=== PATIENT | male | born 1950 | race Caucasian/White ===

== ENCOUNTER → 2023-09-01 07:07 | Outpatient (REF) | payer MEDICARE, OTHER, SELFPAY ==
[2023-09-01 10:28] LABS: % Basophils 0.6 % (0-2); % Eosinophils 0.9 % (0-6); % Immature Granulocytes 0.3 % (0-0.5); % Lymphocytes 21.6 % (20.5-51.1); % Neutrophils 67.6 % (42.2-75.2); Absolute Basophils 0.1 10^3/uL (0-0.2); Absolute Eosinophils 0.1 10^3/uL (0-0.7); Absolute Lymphocytes 1.9 10^3/uL (1.2-3.4); Absolute Monocytes 0.8 10^3/uL (0.1-0.6); Absolute Neutrophils 6.1 10^3/uL (1.4-6.5); Hematocrit 46.4 % (39.0-52.0); Hemoglobin 16.2 g/dL (13.0-18.0); Mean Corp Hgb Conc. 34.9 g/dL (33.0-37.0); Mean Corpuscular Hgb 32.1 pg (27.0-31.0); Mean Corpuscular Volume 91.9 fL (80.0-94.0); Mean Platelet Volume 9.6 fL (7.4-10.4); Nucleated Red Blood Cells % 0 % (-); Platelet Count 208 10^3/uL (130-400); Red Blood Cell Count 5.05 10^6/uL (4.70-6.10); Red Cell Dist. Width 12.4 % (11.5-14.5)
[2023-09-01 10:38] LABS: ALT (SGPT) 18 U/L (0-50); AST (SGOT) 21 U/L (17-59); Albumin 4.1 g/dl (3.5-5.0); Alkaline Phosphatase 87 U/L (38-126); Blood Urea Nitrogen 14 mg/dl (9-20); Calcium 9.7 mg/dl (8.4-10.2); Carbon Dioxide 26 mmol/L (22-30); Chloride 105 mmol/L (98-107); Glucose 87 mg/dl (70-99); HDL Cholesterol 43 mg/dl; Potassium 3.9 mmol/L (3.5-5.1); Sodium 135 mmol/L (135-145); Total Bilirubin 0.8 mg/dl (0.2-1.3); Total Protein 6.8 g/dl (6.3-8.2); Triglyceride 120 mg/dl (10-149); Very Low Density Lipoprotein 24 mg/dl (0-30); eGFR > 60.00
[2023-09-01 10:49] LABS: LDL Cholesterol, Calculated 76 mg/dl; Total Cholesterol 143 mg/dl (50-199)
[2023-09-01 11:06] LABS: TSH Reflex To Free T4 1.95 uIU/ml (0.47-4.68)
[2023-09-01 13:20] LABS: Glycohemoglobin (HgbA1c) 5.6 % (4.0-5.6)
== END ==
LOC: HWLAB 07:07
PROVIDERS: ATTENDING PHYSICIAN Registered Nurse
DX: R73.01 Impaired fasting glucose (principal); E78.2 Mixed hyperlipidemia; K70.0 Alcoholic fatty liver
CPT/HCPCS: 36415; 80053; 80061; 83036; 84443; 85025

== ENCOUNTER → 2024-01-18 10:09 | Outpatient (REF) | payer MEDICARE, OTHER, SELFPAY | LOC: HWRAD 10:09 | PROVIDERS: ATTENDING PHYSICIAN Internal Medicine Critical Care Medicine; FAMILY PHYSICIAN Registered Nurse | DX: F17.210 Nicotine dependence, cigarettes, uncomplicated (principal) | CPT/HCPCS: 71271 ==

== ENCOUNTER 2024-06-30 10:18 | Inpatient (IN) | payer MEDICARE, OTHER, SELFPAY ==
[2024-06-30] VITALS (9 sets, daily range): BP systolic 118–148; BP diastolic 72–89; BMI 31.5
[2024-06-30 08:04] LABS: % Basophils 0.4 % (0-2); % Eosinophils 0.1 % (0-6); % Immature Granulocytes 0.5 % (0-0.5); % Lymphocytes 9.6 % (20.5-51.1); % Monocytes 6.5 % (1.7-9.3); % Neutrophils 82.9 % (42.2-75.2); Absolute Basophils 0.1 10^3/uL (0-0.2); Absolute Immature Granulocytes 0.1 10^3/uL (0-0.05); Absolute Lymphocytes 1.1 10^3/uL (1.2-3.4); Absolute Monocytes 0.8 10^3/uL (0.1-0.6); Absolute Neutrophils 9.7 10^3/uL (1.4-6.5); Hematocrit 46.4 % (39.0-52.0); Hemoglobin 16.4 g/dL (13.0-18.0); Mean Corp Hgb Conc. 35.3 g/dL (33.0-37.0); Mean Corpuscular Hgb 34.2 pg (27.0-31.0); Mean Corpuscular Volume 96.7 fL (80.0-94.0); Mean Platelet Volume 8.4 fL (7.4-10.4); Nucleated Red Blood Cells % 0 % (-); Platelet Count 205 10^3/uL (130-400); Red Cell Dist. Width 13.7 % (11.5-14.5); White Blood Cell Count 11.7 10^3/uL (4.8-10.8)
[2024-06-30 08:16] LABS: ALT (SGPT) 32 U/L (0-50); AST (SGOT) 51 U/L (17-59); Albumin 3.9 g/dl (3.5-5.0); Alkaline Phosphatase 75 U/L (38-126); Blood Urea Nitrogen 13 mg/dl (9-20); Calcium 8.4 mg/dl (8.4-10.2); Carbon Dioxide 18 mmol/L (22-30); Chloride 109 mmol/L (98-107); Estimated Creatinine Clearance 84 ml/min; Glucose 102 mg/dl (70-99); Potassium 3.8 mmol/L (3.5-5.1); Sodium 140 mmol/L (135-145); Total Bilirubin 1.2 mg/dl (0.2-1.3); Total Protein 6.6 g/dl (6.3-8.2); eGFR > 60.00
--- NOTE | 2024-06-30 08:25 | ED.GENMED ---
History of Present Illness
General
Chief Complaint: Fall
Source: patient and spouse
Time Seen by Provider: 06/30/24 08:15
History of Present Illness
History of Present Illness:
This patient is a 74-year-old male presents emergency department complaints of left hip pain status post fall in the middle the night. He describes tripping on a rug, no preceding symptoms, and landing on his left side. He did not hit his head and
denies loss of this, headache, neck pain, numbness, tingling. He was able to back in bed but was not great pain at the left hip area specifically. He waited until his awoke before calling for help. He denies other areas of pain or injury.
He denies chest pain, shortness of breath, nausea, vomiting, numbness, tingling, focal or other complaints.
Past History
Past History
ED Past Medical History: HTN, Hypercholesterolemia and Other (Skin Cancer, Rib Fractures)
ED Past Surgical History: Appendectomy and Cholecystectomy
Social History
Tobacco: Smoker
Alcohol: Occasional
Drug: None
Personal:
Living: with family
Phy Exam
Physical Exam
Physical Exam:
GENERAL: Alert , in no apparent distress
EYE: pupils equal and reactive, EOMI, no photophobia
NECK: Supple, no significant adenopathy, no midline tenderness.
ENT: o/p clr, mmm, no signs of head or facial injury noted on exam.
CARDIAC: Regular rate and rhythm .
LUNGS: Clear breath sounds bilaterally, no acute respiratory distress, no wheezes/rales/rhonchi
ABDOMEN: Soft, without focal tenderness, no r/g, no cvat
NEUROLOGICAL: Alert and oriented, no focal neuro deficits
SKIN: Warm and dry, skin intact.
MUSCULOSKELETAL: No edema, well perfused, 2+ DP/PT pulses bilaterally. Patient has limited range of motion of left hip with associated tenderness to palpation on the lateral hip area. No swelling or tenderness noted distally..
PSYCH: Normal and appropriate interaction.
Course
Orders/Labs/Results
Orders:
Orders
06/30/24 07:54
CR Hip - LT w/wo Pel 2-3 Vw* Urgent
Comment:
Reason For Exam: fall/pain
Include a pelvis x-ray?: Yes
06/30/24 07:56
Complete Blood Count/With Diff Urgent
Comprehensive Metabolic Panel Urgent
06/30/24 08:28
Morphine Sulfate 6 mg IV NOW STA
Abnormal Lab Results
06/30/24
07:56
WBC 11.7 H 10^3/uL
(4.8-10.8)
MCV 96.7 H fL
(80.0-94.0)
MCH 34.2 H pg
(27.0-31.0)
Abs Immat Gran (auto) 0.1 H 10^3/uL
(0-0.05)
Absolute Neuts (auto) 9.7 H 10^3/uL
(1.4-6.5)
Absolute Lymphs (auto) 1.1 L 10^3/uL
(1.2-3.4)
Absolute Monos (auto) 0.8 H 10^3/uL
(0.1-0.6)
Neutrophils % 82.9 H %
(42.2-75.2)
Lymphocytes % 9.6 L %
(20.5-51.1)
Chloride 109 H mmol/L
(98-107)
Carbon Dioxide 18 L mmol/L
(22-30)
Glucose 102 H mg/dl
(70-99)
06/30/24 07:56
06/30/24 07:56
Vital Signs
Initial and Last Documented VS:
Initial Vital Signs
Temp Pulse Resp BP Pulse Ox
99.6 F 94 20 140/79 93
06/30/24 07:47 06/30/24 07:47 06/30/24 07:47 06/30/24 07:47 06/30/24 07:47
Last Documented Vital Signs
Temp Pulse Resp BP Pulse Ox
99.6 F 94 20 140/79 93
06/30/24 07:47 06/30/24 07:47 06/30/24 07:47 06/30/24 07:47 06/30/24 07:47
*Critical Care Note
Total Time (30-74mins, 75-104mins- exclusive of procedures): Not Applicable
Update Note
Update Note:
Patient presents to the Emergency Department with ___left hip pain status post fall
Number and Complexity of Problems Addressed at the Encounter
� Chronic conditions affecting care:
� Acute Exacerbation and/or Progression of Chronic Illness:
� Differential Diagnosis includes: But not limited to pelvic fracture, hip fracture, hip dislocation, strain, etc. etc.
Amount and/or Complexity of Data to be Reviewed and Analyzed
� I performed an independent evaluation of and my interpretation is:
EKG:
CT:
Xrays: Read by me, left hip fracture noted...confirmed by arash mccartney There is a lucency through the left femoral neck favored to represent a minimally displaced left femoral neck fracture, likely transcervical.
Laboratory Studies: Mild leukocytosis, nonspecific
Other:
� Review of other/old records reveals:
� Clinical information was obtained by an independent historian: who is bedside
� Prescriptions/Medications Considered but not given:
� Further testing considered but not performed:
Risk of Complications and/or Morbidity or Mortality of Patient Management
� Social determinants of health affecting care:
� Discussion with other providers (PCP, Hospitalists, Consultants, etc):
� Escalation of care including admission/observation vs risk of discharge considered: Patient and aware of noted x-ray findings. Beulah text sent to orthopedics, Dr. Marvin HIGH Will make hospitalist aware of patient for
admission. Repeat dose of pain medication here.
ED Attending Note
-
Portions of this chart may have been created with voice recognition software.� Occasional wrong word or��sound alike� substitutions may have occurred due to the inherent limitations of voice recognition software.
Discharge Plan
Departure
Patient Disposition: Admit
Date of Disposition: 06/30/24
Time of Disposition: 08:32
Presentation/result/management discussed w/ accepting MD/DO: Hospitalist
Condition: Fair
Discharge Problem:
Closed hip fracture
Prescriptions:
No Action
atorvastatin 40 MG tablet
40 mg PO HS
meloxicam 15 MG tablet
15 mg PO DAILYPRN PRN (Reason: moderate pain)
cyanocobalamin (vitamin B-12) 1,000 MCG tablet
1,000 mcg PO DAILY
trazodone 100 MG tablet
100 mg PO HS
albuterol sulfate 1 PUFF HFA aerosol inhaler
2 puff inhalation R Q4HPRN PRN (Reason: sob/wheeze)
Saccharomyces boulardii 250 MG capsule
250 mg PO DAILY
multivitamin with folic acid [Tab-A-Marci] 1 TABLET tablet
1 tab PO DAILY
lidocaine 1 PATCH adhesive patch,medicated
1 patch topical DAILY Qty: 7 0RF
Rx Instructions:
apply to chest wall
nicotine 21 MG patch 24 hour
21 mg transdermal DAILY 0RF
melatonin 5 MG tablet
5 mg PO HS 0RF
guaifenesin [Mucus Relief ER] 600 MG tablet extended release 12hr
600 mg PO Q12 0RF
prednisone 10 MG tablet
10 mg PO DAILY Qty: 12 0RF
Rx Instructions:
3 tabs daily for 2 days, 2 tabs daily for 2 days, 1 tab daily for 2 days.
lisinopril 20 MG tablet
20 mg PO DAILY Qty: 30 0RF
apixaban [Eliquis] 5 MG tablet
10 mg PO BID Qty: 14 0RF
Interventions
Interventions:
*Risk Screen - Suicide Last Done: 06/30/24 07:47
*General Assessment Last Done: 06/30/24 07:47
*Neglect/Abuse Screening Last Done: 06/30/24 07:47
Discharge Date and Time
Print Language: BENGALI
[2024-06-30] MEDS: MORPHINE SULFATE 6 MG IV (08:34)
[2024-06-30 09:55] LABS: INR 0.92; PT 12.7 Sec (11.4-14.6)
[2024-06-30 09:56] LABS: APTT 28.3 Sec (23.4-35.0)
--- NOTE | 2024-06-30 10:04 | HPS.HSE ---
Family Physician
-
Family Physician: Brittany Dey MD
Chief Complaint
-
L leg pain
History of Present Illness
74yo M with PMHx of DJD, spinal canal stenosis, DVT LE completed aticoagualtiyon, HLD, bronchiectatic disease, current smoker 0.5ppd, HTN, insomnia fell at night when he went to the bathroom, when he tripped. No LOC reported. Patient not on any
antiplatelet or anticoagulation. Patient occasional drinker, not daily as per family. In ED found acute minimally displaced left femoral neck fracture. Also found with hypoxia and mild LE edema. Patient without history of cardiac diseases. Had CT
chest screening in Dec 2023 that was neg for malignancy, but showed bronchiectatic disease.
Medical History
Past Medical History
Past Medical History: Reports Other
Additional Past Medical History:
see HPI
Past Surgical History: Reports Other
Additional Past Surgical History:
see HPI
Social History
Tobacco: Smoker
Alcohol: Occasional
Drug: None
Family History
Family History: Not pertinent
Allergies / Home Medications
Allergies reflects when Allergies were last updated in [facility].
Home Medications with original date entered in [facility]
Allergy/Medication List:
Allergies
Allergy/AdvReac Type Severity Reaction Status Date / Time
Penicillins Allergy Unknown Unknown Verified 06/30/24 07:52
codeine AdvReac Nausea / Verified 06/30/24 07:52
Vomiting
Home Medications - not reconsiled at the time of admission
Saccharomyces boulardii 250 mg capsule 250 mg PO DAILY 06/06/19
albuterol sulfate 90 mcg/actuation aerosol inhaler 2 puff inhalation R Q4HPRN PRN sob/wheeze 06/06/19
atorvastatin 40 mg tablet 40 mg PO HS 06/06/19
cyanocobalamin (vitamin B-12) 1,000 mcg tablet 1,000 mcg PO DAILY 06/06/19
meloxicam 15 mg tablet 15 mg PO DAILYPRN PRN moderate pain 06/06/19
multivitamin with folic acid 400 mcg tablet (Tab-A-Marci) 1 tab PO DAILY 06/06/19
trazodone 100 mg tablet 100 mg PO HS 06/06/19
guaifenesin 600 mg tablet, extended release 12 hr (Mucus Relief ER) 600 mg PO Q12 06/09/19
lidocaine 5 % topical patch 1 patch topical DAILY #7 patches 06/09/19
lisinopril 20 mg tablet 20 mg PO DAILY #30 tabs 06/09/19
melatonin 5 mg tablet 5 mg PO HS 06/09/19
nicotine 21 mg/24 hr daily transdermal patch 21 mg transdermal DAILY 06/09/19
prednisone 10 mg tablet 10 mg PO DAILY #12 tabs 06/09/19
Review of Systems
-
A 12 point ROS was completed and negative except as noted: No
Musculoskeletal: Reports See HPI
Physical Exam
Vital Signs
Vital Signs
Temp Pulse Resp BP Pulse Ox
99.6 F 94 20 140/79 93
06/30/24 07:47 06/30/24 07:47 06/30/24 07:47 06/30/24 07:47 06/30/24 07:47
Physical Exam
General: Well Nourished, No Apparent Distress and Obese
Respiratory: Clear and Decreased Breath Sounds; No Wheezes, Rhonchi or Crackles
Cardiac: S1/S2 and Regular Rhythm; No Murmur
GI: Soft, Non Tender and Non Distended
Genito-urinary: No costovertebral tender
Musculoskeletal: No Clubbing, No Cyanosis, Edema, Left Lower Extremity and Edema, Right Lower Extremity
Skin: Warm and Other (fascial flushing, conjunctival redness)
Neuro: Awake, Alert, Oriented and AO x 3
Psych: Calm
Laboratory Results
-
06/30/24 07:56
06/30/24 07:56
Laboratory Results
PT 12.7 Sec (11.4-14.6) 06/30/24 07:50
INR 0.92 06/30/24 07:50
APTT 28.3 Sec (23.4-35.0) 06/30/24 07:50
Total Bilirubin 1.2 mg/dl (0.2-1.3) 06/30/24 07:56
AST 51 U/L (17-59) 06/30/24 07:56
ALT 32 U/L (0-50) 06/30/24 07:56
Alkaline Phosphatase 75 U/L (38-126) 06/30/24 07:56
Data Reviewed
-
Diagnostic Radiology: Report Reviewed by me
Lab Data: Labs Reviewed by me
Impression/Plan
-
A/P:
#Fall without LOC
Ortho consult: surgical intervention planned for 07/02/24
Pain mgmt
PT/OT afterwards
Patient needs chestXR and EKG before the surgery, might need a dose of diuretics and to avoid volume overload with IVF periOP - ortho notified. Modewrate risk for intermediate risk procedure
Head CT
bedrest till Sx, unless ortho advise differently
#LE swelling with acute hypoxic insufficiency
Echo, Lasix, wean off O2, daily weight, cardiology consult
Chest XR
EKG
check ProBNP
#Mild leukocytosis
most likely stress induced
check COVID-19, Influenza PCR
follow CBC
#Hx of DVT
completed AC
LE US
Check DDImer
#Bronchiectatic disease
Chest XR
bronchodilators
#Nicotine dependency
Nicoderm
#Obesity
BMI 31.5
advide to decrease calorie intake
#Alcohol use
watch for withdrawal
Thiamine/Folate
No reported abuse, will not start MSAS as of now with absent symptoms unless Alcohol level elevated
#conjuctival redness
most likely 2/2 not sleeping due to pain
monitor
#HLD
#HTN
#Spinal stenosis on pain meds
COnt home meds
hold lisinopril on the day of the Sx
DVT ppx Lovenox
Full code - discussed in details with family and patient
I have spent at least 79min reviewing chart, test results, communication with consultants and providing direct patient care
[2024-06-30 10:42] LABS: NT-proBNP 131 pg/ml
[2024-06-30 11:05] LABS: TSH Reflex To Free T4 2.44 uIU/ml (0.47-4.68)
[2024-06-30 11:06] LABS: COVID-19 Antigen Negative (Negative)
[2024-06-30 11:17] LABS: D-Dimer > 20.00 ug/mlFEU (0.00-0.50)
[2024-06-30 11:18] LABS: Alcohol 64 mg/dl
--- NOTE | 2024-06-30 11:28 | CON.CAR ---
Consultation
Consultation Request
Date/Time Consultation Requested: 06/30/2024
Date/Time Consultation Performed: 06/30/2024
Requesting Provider: Dr. Lewis
Performing Provider: Dr. Velazco
Reason for Consultation: Possible CHF
Medical History
-
Chief Complaint: Fall
History of Present Illness:
74-year-old male with hypertension, hyperlipidemia, chronic continued cigarette use, bronchiectasis, DJD, spinal stenosis, and previous lower extremity DVT (status-post completed course of anticoagulation admitted after a fall after tripping over a
rug at home; found to have a left hip fracture. Cardiology consulted for possible CHF, given mild lower extremity swelling. Patient denies chest pain or shortness of breath; states that he had mild lower extremity swelling this morning after
falling--has not been progressive over the past few days or weeks.
Past Medical History
Past Medical History: COPD (Bronchiectasis), HTN, Hypercholesterolemia and Other (DJD)
Past Surgical History: Appendectomy and Cholecystectomy
Social History
Tobacco: Smoker
Alcohol: Occasional
Drug: None
Living: With Family
Family History
Family History: Reviewed & Not Pertinent
Allergies / Home Medications
Allergy/AdvReac Type Severity Reaction Status Date / Time
Penicillins Allergy Unknown Unknown Verified 06/30/24 07:52
codeine AdvReac Nausea / Verified 06/30/24 07:52
Vomiting
�Medication �Instructions �Recorded �Confirmed �Type
Saccharomyces boulardii 250 mg 250 mg PO DAILY 06/06/19 06/06/19 History
capsule
albuterol sulfate 90 mcg/actuation 2 puff inhalation R Q4HPRN PRN 06/06/19 06/06/19 History
aerosol inhaler sob/wheeze
atorvastatin 40 mg tablet 40 mg PO HS 06/06/19 06/06/19 History
cyanocobalamin (vitamin B-12) 1,000 mcg PO DAILY 06/06/19 06/06/19 History
1,000 mcg tablet
meloxicam 15 mg tablet 15 mg PO DAILYPRN PRN moderate pain 06/06/19 06/06/19 History
multivitamin with folic acid 400 1 tab PO DAILY 06/06/19 06/06/19 History
mcg tablet (Tab-A-Marci)
trazodone 100 mg tablet 100 mg PO HS 06/06/19 06/06/19 History
guaifenesin 600 mg tablet, 600 mg PO Q12 06/09/19 Rx
extended release 12 hr (Mucus
Relief ER)
lidocaine 5 % topical patch 1 patch topical DAILY #7 patches 06/09/19 Rx
lisinopril 20 mg tablet 20 mg PO DAILY #30 tabs 06/09/19 Rx
melatonin 5 mg tablet 5 mg PO HS 06/09/19 Rx
nicotine 21 mg/24 hr daily 21 mg transdermal DAILY 06/09/19 Rx
transdermal patch
prednisone 10 mg tablet 10 mg PO DAILY #12 tabs 06/09/19 Rx
apixaban 5 mg tablet (Eliquis) 10 mg (2 x 5 mg) PO BID Blood clot 10/08/20 Rx
prevention/tx #14 tabs
Review of Systems
-
History Source: Patient
All other systems: Negative unless noted
Musculoskeletal: Joint Pain
Physical Exam
Vital Signs
Temp Pulse Resp BP Pulse Ox
99.6 F 96 27 148/78 96
06/30/24 07:47 06/30/24 11:00 06/30/24 07:50 06/30/24 11:00 06/30/24 11:00
Lab Results
06/30/24 07:56
06/30/24 07:56
[id number] Pept 131 pg/ml 06/30/24 07:56
Physical Exam
General: No Apparent Distress and Comfortable
HEENT: Anicteric
Respiratory: Rhonchi (Scant bibasilar rhonchi)
Cardiac: S1/S2 and Regular Rhythm
Breast: N/A
GI: Soft
Rectal: Deferred by Provider
Musculoskeletal: Edema (Trace)
Skin: Warm and Dry
Neuro: AO x 3
Psych: Calm
Impression / Plan
-
74-year-old male with hypertension, hyperlipidemia, chronic continued cigarette use, bronchiectasis, DJD, spinal stenosis, and previous lower extremity DVT (status-post completed course of anticoagulation admitted after a fall after tripping over a
rug at home; found to have a left hip fracture. Cardiology consulted for possible CHF, given mild lower extremity swelling. Patient denies chest pain or shortness of breath; states that he had mild lower extremity swelling this morning after
falling--has not been progressive over the past few days or weeks.
Fall:
-Acute left hip fracture.
-Plan is for patient to go to the OR on Tuesday; can proceed as scheduled from a cardiac standpoint.
Possible CHF:
-Patient does not have any overt findings suggestive of CHF.
-Trace edema after fall; cardiac BNP is only 131.
-Given Lasix 40 mg IV in the ER; does not appear that the patient needs a standing diuretic at this time.
-Echocardiogram on Tuesday; this does not have to delay surgery.
Hypertension:
-Continue current dose of lisinopril.
Hyperlipidemia:
-Continue atorvastatin.
Chronic continued cigarette use:
-Counseled today on the importance of smoking cessation.
Obesity:
-Weight loss recommended.
Data Reviewed
-
EKG: Other (EKG ordered)
Labs: Labs Reviewed by me
[2024-06-30] MEDS: ZOFRAN 4 MG IV (11:36)
[2024-06-30] MEDS: LASIX 40 MG IV (11:39)
[2024-06-30] MEDS: DUONEB 3 ML INH ×3 (11:48→19:34)
[2024-06-30] MEDS: ROXICODONE 5 MG PO ×2 (11:49→23:02)
[2024-06-30] MEDS: NICODERM TRANSDERMAL 14 MG TRANSDERM (11:50)
[2024-06-30] MEDS: MORPHINE SULFATE 1 MG IV (13:14)
[2024-06-30 14:47] LABS: Amphetamines Negative (Negative); Barbiturates Negative (Negative); Benzodiazepines Negative (Negative); Buprenorphine Negative (Negative); Cocaine Negative (Negative); Marijuana Negative (Negative); Methadone Negative (Negative); Methamphetamines Negative (Negative); Opiates Positive (Negative); Phencyclidine Negative (Negative); Tricyclic Antidepressants Negative (Negative)
[2024-06-30] MEDS: ATIVAN 1 MG PO ×3 (15:01→23:08)
[2024-06-30 15:20] LABS: Fentanyl, Urine Positive (Negative)
--- NOTE | 2024-06-30 16:25 | CON.ORTHO ---
Consultation
-
Date/Time Consultation Requested: 06/30/24 @9:45am
Date/Time Consultation Performed: 06/30/24 @4:15pm
Requesting Provider: ER Provider
Performing Provider: Mara Hirsch PA-C, Darryl Mata MD
Reason for Consultation: left hip fracture
Consultation - Orthopedics
History
HPI: 74yo male admitted to [facility] following a fall. Early this morning, he was going to the bathroom when he tripped on the carpet and fell landing on his left side on the hardwood floor. His is at the bedside and reports that she
was asleep in a different room and was not aware that he fell. He laid on the floor for a few hours but was eventually able to get into the bed. He was then not able to get out of bed. He was brought to the ER for evaluation. Xrays revealed a left
hip fracture. He reports that he is experiencing pain with any movement and some muscle spasms. He has a history of a blood clot and was previously on Eliquis but no longer takes this medication. Orthopedics has been consulted for further management.
PAST MEDICAL HISTORY: DJD, spinal canal stenosis, DVT LE completed anticoagulation, HLD, bronchiectatic disease, HTN, insomnia
PAST SURGICAL HISTORY: Appendectomy, Cholecystectomy
SOCIAL HISTORY: current smoker 0.5ppd, occasional alcohol, ambulates without assistive device at baseline, lives in one story home with
FAMILY HISTORY: Non contributory
REVIEW OF SYSTEMS: 12 point review of systems obtained and negative except those mentioned in the HPI
Allergies / Home Medications
Allergy/AdvReac Type Severity Reaction Status Date / Time
Penicillins Allergy Unknown Unknown Verified 06/30/24 07:52
codeine AdvReac Nausea / Verified 06/30/24 07:52
Vomiting
�Medication �Instructions �Recorded
Saccharomyces boulardii 250 mg 250 mg PO DAILY 06/06/19
capsule
albuterol sulfate 90 mcg/actuation 2 puff inhalation R Q4HPRN PRN 06/06/19
aerosol inhaler sob/wheeze
atorvastatin 40 mg tablet 40 mg PO HS 06/06/19
cyanocobalamin (vitamin B-12) 1,000 mcg PO DAILY 06/06/19
1,000 mcg tablet
meloxicam 15 mg tablet 15 mg PO DAILYPRN PRN moderate pain 06/06/19
multivitamin with folic acid 400 1 tab PO DAILY 06/06/19
mcg tablet (Tab-A-Marci)
trazodone 100 mg tablet 100 mg PO HS 06/06/19
guaifenesin 600 mg tablet, 600 mg PO Q12 06/09/19
extended release 12 hr (Mucus
Relief ER)
lidocaine 5 % topical patch 1 patch topical DAILY #7 patches 06/09/19
lisinopril 20 mg tablet 20 mg PO DAILY #30 tabs 06/09/19
melatonin 5 mg tablet 5 mg PO HS 06/09/19
nicotine 21 mg/24 hr daily 21 mg transdermal DAILY 06/09/19
transdermal patch
prednisone 10 mg tablet 10 mg PO DAILY #12 tabs 06/09/19
apixaban 5 mg tablet (Eliquis) 10 mg (2 x 5 mg) PO BID Blood clot 10/08/20
prevention/tx #14 tabs
Vital Signs / Lab Results
Temp Pulse Resp BP Pulse Ox
99.6 F 90 16 118/72 96
06/30/24 15:36 06/30/24 15:50 06/30/24 15:50 06/30/24 15:36 06/30/24 15:36
06/30/24 07:56
06/30/24 07:56
RADIOGRAPHIC FINDINGS:
Xrays left hip reveal there is a lucency through the left femoral neck favored to represent a minimally displaced left femoral neck fracture, likely transcervical
PHYSICAL EXAM:
General: no acute distress
HEENT: NCAT, sclera anicteric, normal hearing
Heart: No JVD
Lungs: Normal work of breathing on room air
MSK: Directed exam of LLE reveals leg shortened and externally rotated. +TTP about lateral hip. thigh is soft and compressible. +Logroll. able to plantarflex/dorsiflex the ankle. NVI distally
Assessment / Plan
ASSESSMENT: 74yo male with left femoral neck fracture
PLAN: Unfortunately, Mr. Daniels sustained a left hip fracture in his fall overnight. Recommend surgical fixation. We discussed the risks, benefits, potential complications, and expected postop course. He is in agreement to proceed with surgery.
Will plan for left hip hemiarthroplasty under the direction of Dr. Carlson on 07/02/24. Consent was obtained and placed on the patient's chart. Ancef and irrigation hydro station supervisor to the OR. Type and screen complete. He is to remain on bedrest until
postop. Continue with pain management as needed. Will need PT/OT evaluation postop. All questions answered. Will continue to follow along.
[2024-06-30] MEDS: DILAUDID 0.5 MG IV ×2 (16:42→19:46)
[2024-06-30] MEDS: LOVENOX 40 MG SC (16:42)
[2024-06-30] MEDS: PEPCID 20 MG PO (19:44)
[2024-06-30] MEDS: TYLENOL 650 MG PO (19:45)
[2024-06-30] MEDS: FLUSH (NSS) 2 FLUSH IV (19:46)
[2024-06-30] MEDS: DESYREL 100 MG PO (20:56)
[2024-06-30] MEDS: MELATONIN 5 MG PO (20:56)
[2024-06-30] MEDS: LIPITOR 40 MG PO (20:56)
[2024-07-01] MEDS: FLUSH (NSS) 2 FLUSH IV (03:06)
[2024-07-01] MEDS: DILAUDID 0.5 MG IV ×5 (03:07→20:50)
[2024-07-01] MEDS: ZOFRAN 4 MG IV (03:14)
[2024-07-01 03:24] VITALS: BP 125/73
[2024-07-01 06:00] VITALS: BMI 31.2
[2024-07-01 07:13] LABS: ALT (SGPT) 321 U/L (0-50); AST (SGOT) 352 U/L (17-59); Alkaline Phosphatase 172 U/L (38-126); Blood Urea Nitrogen 20 mg/dl (9-20); Calcium 8.5 mg/dl (8.4-10.2); Carbon Dioxide 28 mmol/L (22-30); Chloride 97 mmol/L (98-107); Estimated Creatinine Clearance 93 ml/min; Glucose 111 mg/dl (70-99); HDL Cholesterol 66 mg/dl; LDL Cholesterol, Calculated 60 mg/dl; Magnesium 1.4 mg/dl (1.6-2.3); Potassium 3.9 mmol/L (3.5-5.1); Sodium 135 mmol/L (135-145); Total Bilirubin 2.4 mg/dl (0.2-1.3); Total Cholesterol 163 mg/dl (50-199); Total Protein 6.5 g/dl (6.3-8.2); Triglyceride 188 mg/dl (10-149); Very Low Density Lipoprotein 37 mg/dl (0-30); eGFR > 60.00
[2024-07-01] MEDS: DUONEB 3 ML INH ×4 (07:25→20:17)
[2024-07-01 07:44] LABS: Creatine Phosphokinase 225 U/L (55-170); GGTP 531 U/L (15-73)
[2024-07-01 08:11] LABS: Direct Bilirubin 0.6 mg/dl (0.0-0.4)
[2024-07-01 08:13] LABS: % Basophils 0.2 % (0-2); % Eosinophils 0.3 % (0-6); % Immature Granulocytes 0.6 % (0-0.5); % Lymphocytes 6.5 % (20.5-51.1); % Monocytes 5.5 % (1.7-9.3); % Neutrophils 86.9 % (42.2-75.2); Absolute Immature Granulocytes 0.1 10^3/uL (0-0.05); Absolute Lymphocytes 0.6 10^3/uL (1.2-3.4); Absolute Monocytes 0.5 10^3/uL (0.1-0.6); Absolute Neutrophils 7.7 10^3/uL (1.4-6.5); Hematocrit 44.3 % (39.0-52.0); Mean Corp Hgb Conc. 33.9 g/dL (33.0-37.0); Mean Corpuscular Hgb 33.6 pg (27.0-31.0); Mean Corpuscular Volume 99.1 fL (80.0-94.0); Mean Platelet Volume 9.4 fL (7.4-10.4); Nucleated Red Blood Cells % 0 % (-); Platelet Count 140 10^3/uL (130-400); Red Blood Cell Count 4.47 10^6/uL (4.70-6.10); Red Cell Dist. Width 13.8 % (11.5-14.5); White Blood Cell Count 8.9 10^3/uL (4.8-10.8)
[2024-07-01 08:23] VITALS: BP 136/76
[2024-07-01] MEDS: LIDOCAINE 4% PATCH 1 PATCH TOPICAL ×2 (08:30→15:44)
[2024-07-01] MEDS: NICODERM TRANSDERMAL 14 MG TRANSDERM (08:30)
[2024-07-01] MEDS: PEPCID 20 MG PO ×2 (08:31→19:56)
--- NOTE | 2024-07-01 08:31 | W.PN.UPDATE ---
Update Note
Progress Note Update
Patient is resting in bed this morning. He reports that his muscle spasms have calmed down some. He does have discomfort in the leg. Continue with pain management as needed. Apply ice as needed. Plan is for OR tomorrow under the direction of
Aldo. NPO after midnight. Ancef and irrigation cash application representative to OR. Please hold Lovenox tonight. All patient's questions answered.
[2024-07-01] MEDS: ROXICODONE 5 MG PO ×2 (08:32→22:52)
[2024-07-01] MEDS: ZESTRIL 20 MG PO (08:32)
[2024-07-01] MEDS: FOLVITE 1 MG PO (08:32)
[2024-07-01] MEDS: VITAMIN B1 100 MG PO (08:32)
[2024-07-01] MEDS: MAGNESIUM SULFATE 100 IV (08:33)
[2024-07-01 09:06] LABS: Reticulocyte Count 1.6 % (0.4-2.8)
[2024-07-01 09:08] LABS: LDH 438 U/L (120-246)
--- NOTE | 2024-07-01 09:35 | W.PN.HOSP.TC ---
Today's Communication/Plan
-
follow LFT, check PAUL, haptoglobin, US RUQ
incentive spirometry
pedning Sx
watch for withdrawal
Assessment / Plan
Assessment / Plan
74yo M with PMHx of DJD, spinal canal stenosis, DVT LE completed aticoagualtiyon, HLD, bronchiectatic disease, current smoker 0.5ppd, HTN, insomnia fell at night without LOC, found L femoral Fx awaiting Sx on 07/02/24
ALso alcohol dependency, watching for withdrawal and new LFT elevation without abdominal pain
A/P:
#Fall without LOC
Ortho consult: surgical intervention planned for 07/02/24
Pain mgmt
PT/OT afterwards
Patient needs chestXR and EKG before the surgery, might need a dose of diuretics and to avoid volume overload with IVF periOP - ortho notified. Modewrate risk for intermediate risk procedure
Head CT without acute findings
bedrest till Sx, unless ortho advise differently
#Indirect bilirubinemia
#Transaminitis
suspect 2/2 Fx
hold statin, tylenol
follow LFT
Retics WNL, LDH mildly elevated -check Croombs and haptoglobin
RUQ abd US pedning
#LE swelling (resolved)
#acute hypoxic insufficiency
#Elevated ddmer - 2/2 Fx
#COPD not in exacerbation
no wheezing on exam
ProBNP 131 - most likely not due to CHF
Suspect shallow breathing due to LLE pain and mild COPD
Cardiology followed
LE neg for DVT, no PE on CT chest
Incentive spirometry
wean off as tolerated
#Mild leukocytosis
most likely stress induced, resolved
COVID-19, Influenza PCR neg
follow CBC
#Nicotine dependency
Nicoderm
#Obesity
BMI 31.5
advide to decrease calorie intake
#Alcohol use
Elevated GGT
watch for withdrawal
Thiamine/Folate
Alcohol level elevated on admission - MSAS
#conjunctival redness
resolved
#HLD
#HTN
#Spinal stenosis on pain meds
COnt home meds
hold lisinopril on the day of the Sx
DVT ppx Lovenox
Full code - discussed in details with family and patient
I have spent at least 59min reviewing chart, test results, communication with consultants and providing direct patient care
Anticipated Discharge: > 48 hours
Subjective/Interval History
-
Date of Service: July 01, 2024
Objective Data
-
Labs:
Laboratory Results
07/01/24 07/01/24
05:18 12:00
WBC 8.9
Hgb 15.0
Hct 44.3
Plt Count 140 D
Sodium 135
Potassium 3.9
Chloride 97 L
Carbon Dioxide 28
BUN 20
Creatinine 0.9
Glucose 111 H
Calcium 8.5
Total Bilirubin 2.4 H D Pending
AST 352 H Pending
ALT 321 H Pending
Alkaline Phosphatase 172 H Pending
Vital Signs:
Vital Signs
Temp Pulse Resp BP Pulse Ox
98.3 F 90 16 136/76 96
07/01/24 08:23 07/01/24 08:23 07/01/24 08:23 07/01/24 08:23 07/01/24 08:59
I&O
06/30/24 07/01/24 07/02/24
05:59 06:59 06:59
Intake Total
Output Total
Balance
Review of Systems
-
History Source: Patient
All other systems: Reviewed and negative
Musculoskeletal: Reports Other (LLE pain)
Physical Exam
-
General: No Apparent Distress
HEENT: Normocephalic
Respiratory: Clear to Auscultation
GI: Soft, Nontender and Nondistended
Genito-urinary: No Costovertebral Tender
Musculoskeletal: No Clubbing, No Cyanosis and No Edema
Neuro: Awake, Alert, Oriented and AO x 3
Psych: Calm
[2024-07-01 10:46] LABS: ALT (SGPT) 263 U/L (0-50); AST (SGOT) 250 U/L (17-59); Albumin 3.5 g/dl (3.5-5.0); Alkaline Phosphatase 159 U/L (38-126); Direct Bilirubin 0.5 mg/dl (0.0-0.4); Total Protein 6.1 g/dl (6.3-8.2)
--- NOTE | 2024-07-01 11:37 | W.PN.UPDATE ---
Update Note
Progress Note Update
-Came to see patient, but not in room.
-No major events overnight.
-Telemetry stable; sinus rhythm with occasional PVCs.
-Proceed with orthopedic surgery as scheduled tomorrow; will see post-op.
[2024-07-01] MEDS: ATIVAN 1 MG PO ×2 (12:13→16:25)
--- NOTE | 2024-07-01 12:17 | CM ---
Patient seen at bedside with
Dx: Left hip fx from a fall at home
PMH: DJD, spinal canal stenosis, DVT LE, HLD, bronchiectatic disease, current smoker 0.5ppd, HTN, insomnia
IA completed
CM consult completed for substance abuse counseling-Patient declines [facility]
Liver US today, OR tomorrow
Lives with in [facility], 2 steps to enter
PLOF: Independent without assistive device
DME: Walker, crutches
Denies HH/Rehab
Denies insecurities
PT/OT to eval post-op
PCP: [facility]
Pharmacy: [facility]
PLAN: OR tomorrow, await PT/OT evals
[2024-07-01 15:45] VITALS: BP 155/82
[2024-07-01] MEDS: LOVENOX 40 MG SC (15:46)
--- NOTE | 2024-07-01 16:19 | PTCARENOTE ---
pt requested Dr. Lewis call family member, who is a doctor at [facility] but not on contact list. Did verify again per HIPPA doctor could call Sarina Acosta, it was ok to share information.
[2024-07-01] MEDS: MIRALAX 17 GRAMS PO (16:31)
[2024-07-01 19:47] VITALS: BP 139/84
[2024-07-01] MEDS: MELATONIN 5 MG PO (20:50)
[2024-07-01 23:18] VITALS: BP 151/89
--- NOTE | 2024-07-01 23:46 | PTCARENOTE ---
pt had episode of bilious vomit w notable small white specks. Pt stated it looked like a pill he just took. Will reassess pain and medicate accordingly.
[2024-07-02] VITALS (22 sets, daily range): BP systolic 87–157; BP diastolic 61–116; BMI 31.6
[2024-07-02] MEDS: DILAUDID 0.5 MG IV ×5 (00:03→22:12)
[2024-07-02] MEDS: NSS (PRESERVATIVE FREE) 0.5 ML IV ×2 (00:03→04:21)
[2024-07-02] MEDS: ZOFRAN 4 MG IV (00:04)
[2024-07-02] MEDS: ATIVAN 1 MG IV ×4 (04:21→19:37)
--- NOTE | 2024-07-02 06:07 | TRANSFER ---
Report given to SHE[employer] HELPER Hiram, patient and all personal belongings transferred at 0600.
--- NOTE | 2024-07-02 06:33 | PTCARENOTE ---
Pt admit to ICU from 2S, pt belongings w/ pt. AAOx3, MSAS 2. Pain in L hip 01/02. Turned to R side with pillow underneath for some relief.
[2024-07-02] MEDS: DUONEB 3 ML INH ×4 (07:50→20:13)
[2024-07-02] MEDS: LIDOCAINE 4% PATCH 1 PATCH TOPICAL ×2 (07:55→09:00)
--- NOTE | 2024-07-02 08:48 | W.PN.CD ---
Today's Communication / Plan
-
Echocardiogram
Impression / Plan
-
74-year-old male with hypertension, hyperlipidemia, chronic continued cigarette use, bronchiectasis, DJD, spinal stenosis, and previous lower extremity DVT (status-post completed course of anticoagulation admitted after a fall after tripping over a
rug at home; found to have a left hip fracture. Cardiology consulted for possible CHF, given mild lower extremity swelling. Patient denies chest pain or shortness of breath; states that he had mild lower extremity swelling this morning after
falling--has not been progressive over the past few days or weeks.
Fall:
-Acute left hip fracture.
-Plan is for patient to go to the OR on Tuesday; can proceed as scheduled from a cardiac standpoint.
Possible CHF:
-Patient does not have any overt findings suggestive of CHF.
-Trace edema after fall; cardiac BNP is only 131.
-Given Lasix 40 mg IV in the ER; no further diuresis necessary at this point
-Echocardiogram pending
Hypertension:
-Continue current dose of lisinopril.
Hyperlipidemia:
-Continue atorvastatin.
Chronic continued cigarette use:
-Counseled today on the importance of smoking cessation.
Obesity:
-Weight loss recommended.
Subjective: Feeling OK appears to be slightly confused
Physical Exam
Vital Signs/Labs
Vital Signs
Temp Pulse Resp BP Pulse Ox
98.8 F 88 22 122/90 97
07/02/24 07:38 07/02/24 07:55 07/02/24 07:55 07/02/24 06:27 07/02/24 07:55
07/01/24 07/02/24 07/03/24
06:59 06:59 06:59
Actual Weight 232 lb 9.6 oz
07/01/24 05:18
07/01/24 05:18
PT 12.7 Sec (11.4-14.6) 06/30/24 07:50
INR 0.92 06/30/24 07:50
APTT 28.3 Sec (23.4-35.0) 06/30/24 07:50
Magnesium 1.4 mg/dl (1.6-2.3) L 07/01/24 05:18
Triglycerides 188 mg/dl (10-149) H 07/01/24 05:18
LDL Cholesterol, Calc 60 mg/dl 07/01/24 05:18
VLDL Cholesterol, Calc 37 mg/dl (0-30) H 07/01/24 05:18
HDL Cholesterol 66 mg/dl 07/01/24 05:18
06/30/24
07:56
Xou-E-Pyaemrzpvev Pept 131
Physical Exam
Constitutional: No acute distress and Comfortable
EENT: Anicteric
Cardiovascular: Rhythm & rate is regular and Pedal edema present (trivial)
Respiratory: Respiratory effort normal and Lungs clear to auscul.
GI: Soft
Neuro/Psych: AO x 3
Data Reviewed
-
Date of Service: July 02, 2024
EKG: Tracing Personally Visualized and interpreted (sr)
Echo: Tracing Personally Visualized and interpreted and Report Reviewed by me
Labs: Labs Reviewed by me
[2024-07-02] MEDS: PEPCID 20 MG PO (09:00)
[2024-07-02] MEDS: ZESTRIL 20 MG PO (09:00)
[2024-07-02] MEDS: VITAMIN B1 100 MG PO (09:00)
[2024-07-02] MEDS: NICODERM TRANSDERMAL 14 MG TRANSDERM (09:00)
[2024-07-02] MEDS: FOLVITE 1 MG PO (09:00)
--- NOTE | 2024-07-02 09:24 | W.PN.UPDATE ---
Update Note
Progress Note Update
Patient transferred to the ICU this morning. currently in bed doing and feeling well overall. Discussed with attending hospitalist, Dr. Dietz, who plans to optimize the patient throughout today in hopes of proceeding to the OR tomorrow for
hemiarthroplasty of the left hip. surgical and blood consents were previously obtained and placed to the chart. Original plan was under the direction of Dr. Carlson, but that may change due to logistics. Discussed with the patient and bedside.
OR is aware. Will allow a diet today. Should remain at bedrest. Orders were updated. Again, hopefully we can proceed sometime tomorrow with a prosthetic replacement of his left hip so that we can mobilize him as quickly as possible. Orthopedic
surgery to follow.
--- NOTE | 2024-07-02 10:00 | PTCARENOTE ---
Complete assessment done this am, and documented in worklist. Pt's MSAS=4, Pt oriented sl confused. Pt to have surgery on L hip tomorrow as per RABIA Leger. Orders put in for pt to eat today, and will be NPO after MN. Mouth care done, Condom cath
replaced. O2 sat=96% on 4l NC.
[2024-07-02] MEDS: ATIVAN 1 MG PO ×3 (10:22→14:40)
[2024-07-02 11:31] LABS: % Basophils 0.3 % (0-2); % Immature Granulocytes 0.4 % (0-0.5); % Lymphocytes 5.4 % (20.5-51.1); % Monocytes 4.5 % (1.7-9.3); % Neutrophils 88.4 % (42.2-75.2); Absolute Eosinophils 0.1 10^3/uL (0-0.7); Absolute Lymphocytes 0.6 10^3/uL (1.2-3.4); Absolute Monocytes 0.5 10^3/uL (0.1-0.6); Hematocrit 43.2 % (39.0-52.0); Hemoglobin 15.1 g/dL (13.0-18.0); Mean Corpuscular Hgb 34.3 pg (27.0-31.0); Mean Corpuscular Volume 98.2 fL (80.0-94.0); Mean Platelet Volume 9.4 fL (7.4-10.4); Nucleated Red Blood Cells % 0 % (-); Platelet Count 120 10^3/uL (130-400); Red Cell Dist. Width 13.2 % (11.5-14.5); White Blood Cell Count 10.1 10^3/uL (4.8-10.8)
[2024-07-02 11:48] LABS: Blood Urea Nitrogen 23 mg/dl (9-20); Calcium 8.9 mg/dl (8.4-10.2); Carbon Dioxide 30 mmol/L (22-30); Chloride 97 mmol/L (98-107); Estimated Creatinine Clearance 105 ml/min; Glucose 103 mg/dl (70-99); Potassium 3.9 mmol/L (3.5-5.1); Sodium 133 mmol/L (135-145); eGFR > 60.00
--- NOTE | 2024-07-02 13:16 | W.PN.HOSP.TC ---
Today's Communication/Plan
-
Check coags
Start phenobarbital
Echocardiogram today
Plan for tentative OR tomorrow
May require GI input for steroids
Assessment / Plan
Assessment / Plan
74yo M with PMHx of DJD, spinal canal stenosis, DVT LE completed aticoagualtiyon, HLD, bronchiectatic disease, current smoker 0.5ppd, HTN, insomnia fell at night without LOC, found L femoral Fx awaiting Sx on 07/02/24
ALso alcohol dependency, watching for withdrawal and new LFT elevation without abdominal pain
A/P:
# Daily alcohol usage/abuse
# Acute alcohol withdrawal with hallucinations
Elevated GGT
Thiamine/Folate
Alcohol level elevated on admission - MSAS continues to be remain high
Will start patient on phenobarbital taper regimen. Discussed with pharmacy will reduce loading dose
Also check coags
Patient Rizwan alcohol hepatitis score 7
We will need to check Madrey and MELD score pending coags.
Based on the score may need GI input for steroids
Abdominal ultrasound with hepatic steatosis. Mild thrombocytopenia noted.
# Toxic metabolic encephalopathy likely secondary to severe alcohol withdrawal
Monitor mentation
#Fall without LOC
Ortho consult: surgical intervention planned for 07/02/24
Pain mgmt
PT/OT afterwards
Cards following. Appreciate perioperative stratification
Echo pending for today
Head CT without acute findings
bedrest till Sx, unless ortho advise differently
#LE swelling (resolved)
#acute hypoxic insufficiency
#Elevated ddmer - 2/2 Fx
#COPD not in exacerbation
no wheezing on exam
ProBNP 131 - most likely not due to CHF
Suspect shallow breathing due to LLE pain and mild COPD
Cardiology followed
LE neg for DVT, no PE on CT chest
Incentive spirometry
wean off as tolerated
#Mild leukocytosis
most likely stress induced, resolved
COVID-19, Influenza PCR neg
follow CBC
#Nicotine dependency
Nicoderm
#Obesity
BMI 31.5
advide to decrease calorie intake
#conjunctival redness
resolved
#HLD
#HTN
#Spinal stenosis on pain meds
COnt home meds
hold lisinopril on the day of the Sx
DVT ppx Lovenox
Full code - discussed in details with family and patient
Discussed with patient spouse at bedside in details
Anticipated Discharge: > 48 hours
Subjective/Interval History
-
Date of Service: July 02, 2024
Overnight patient was transferred to IMU as with severely elevated alcohol withdrawal
Withdrawal score remains elevated
Patient with intermittent confusion and hallucination
States of hip pain
Not much appetite
Objective Data
-
Labs:
Laboratory Results
07/02/24 07/02/24
11:01 13:10
WBC 10.1
Hgb 15.1
Hct 43.2
Plt Count 120 L
PT Pending
INR Pending
APTT Pending
Sodium 133 L
Potassium 3.9
Chloride 97 L
Carbon Dioxide 30
BUN 23 H
Creatinine 0.8
Glucose 103 H
Calcium 8.9
Vital Signs:
Vital Signs
Temp Pulse Resp BP Pulse Ox
99.2 F 79 16 125/78 94
07/02/24 11:10 07/02/24 11:23 07/02/24 11:23 07/02/24 09:00 07/02/24 11:23
I&O
07/01/24 07/02/24 07/03/24
06:59 06:59 06:59
Intake Total 1919 / 1920
Output Total 750 / 750
Balance 1170 / 1170
Physical Exam
-
General: Obese and Other (Eyes closed)
HEENT: Normocephalic, Atraumatic and Moist Mucous Membranes
Respiratory: Clear to Auscultation
Cardiac: Regular Rhythm and S1/S2; Negative Murmur, Rub or Gallop
GI: Soft, Nontender, Nondistended and Normal Bowel Sounds; Negative Organomegaly
Rectal: Deferred by Provider
Musculoskeletal: No Clubbing, No Cyanosis and No Edema
Skin: Negative Rash
Neuro: Awake; Negative Slurred Speech or Facial Droop
Psych: Confused
Data Reviewed
-
Total Time Spent with Patient (in minutes): 55
[2024-07-02] MEDS: PHENOBARBITAL 102 MG IV (13:56)
--- NOTE | 2024-07-02 14:19 | CM ---
CM following re: discharge planning.
Reviewed pt's chart, met with pt and pt's spouse at bedside.
Both pt and his spouse are aware that pt is to OR tomorrow for hemiarthroplasty of the left hip. After care has been discussed with pt and his spouse with possible needs of SNF level of care. 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 Pt is requested [facility] if he needs.
A referral to [facility] made for a review.
Per pt is [facility] is not an options, then he will return back home with services.
PT and OT will evaluate the pt after surgery to determine a level of care at disagree.
D/C plan: both pt and his spouse requested [facility].
CM will follow with discharge plan updates as hospitalization progresses
[2024-07-02 14:21] LABS: APTT 27.6 Sec (23.4-35.0); INR 0.96; PT 13.1 Sec (11.4-14.6)
[2024-07-02] MEDS: ROXICODONE 5 MG PO (14:53)
--- NOTE | 2024-07-02 17:38 | PTCARENOTE ---
Pt's MSAS 4-11 throughout the day, needs to be redirected often. Pt usually oriented x3, but has halluciations. Pt given phenobarbital iv dose as per Dr Bach. BMP, CBC, Mg, and PT/PTT levels drawn, and sent to lab. Pt given pain medication PRN for
L hip and upper leg pain, as per orders. At 1700 this evening, pt pulled all his clothes and monitor leads off, pulled his R INT out, and tried to climb out of bed. Pt very confused and wants to go home. Pt with hallucinations. Pt assisted back to
bed by 4 nurses, MSAS=11, ativan 1 mg iv given. Bed alarm remains on.
[2024-07-02 18:45] LABS: Hepatitis B Surface Antigen Negative (Negative)
--- NOTE | 2024-07-02 19:00 | PTCARENOTE ---
Vital signs pulled from 1600. Unable to verify vital signs prior to 1900.
[2024-07-02 19:04] LABS: Hepatitis B Core Ab, Total Negative (Negative); Hepatitis B Surface Antibody Positive; Hepatitis C Antibody Negative (Negative)
--- NOTE | 2024-07-02 19:30 | PTCARENOTE ---
Patient is significantly agitated. He has removed his clothing, electrodes, condom cath and his IVs. He is oriented to place and person when asked, however he is confused to time and he requires assertive redirection in his actions. He is
increasingly beligerant and trying to climb OOB. His orientation is not consistent. He thinks he is at home. He seems to be visually hallucinating in his conversation. He is requiring restraint. Bilateral soft wrist restraints donned and Ativan
given per MSAS protocol. BBS are clear in UL anteriorly but very diminished posteriorly and at bases. S1S2 distant. Abdomen distended with positive bowel sounds. Positive pulses x 4 extremities. BLE edema 2+. Patient has significant pain with
movement and agitation. He does not think he broke his hip. A new condom cath was donned that patient promptly removed. Left Condom cath off. New IV sites inserted, Right AC #20 and Left FA #22. See MAR and MSAS for Ativan dosing.
[2024-07-02] MEDS: ATIVAN 2 MG IV ×2 (20:35→21:56)
[2024-07-02] MEDS: PHENOBARBITAL 97.5 MG IV (20:44)
[2024-07-02 21:02] LABS: Hepatitis A IgM Antibody Negative (Negative)
--- NOTE | 2024-07-02 21:30 | PTCARENOTE ---
Patient incontinent of urine. He is attempting to cooperate with cares. Complete CHG cloth bath given, perineal care. Complete linen change. Was medicated with Ativan prior to cares due to MSAS.
[2024-07-02] MEDS: MELATONIN PO (21:46)
[2024-07-02] MEDS: PEPCID PO (21:46)
[2024-07-02 22:41] LABS: Haptoglobin 155 mg/dL (30-200)
[2024-07-03] VITALS (25 sets, daily range): BP systolic 103–186; BP diastolic 66–106; BMI 30.6
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
[2024-07-03] MEDS: ATIVAN 2 MG IV ×3 (00:30→03:45)
--- NOTE | 2024-07-03 00:37 | W.PN.UPDATE ---
Update Note
Progress Note Update
Patient with intermittent agitation while on MSAS protocol. Becomes more agitated when nursing attempts to help him. B/L wrist soft restraints continue and RLE ankle restraint added. Lorazepam 1 mg IV extra dose added. Will limit interaction to
absolutely necessary tasks. He appears safe and is able to be visualized from the door. VSS but of course bp and HR elevated with agitation episodes.
[2024-07-03] MEDS: DILAUDID 0.5 MG IV ×5 (01:23→21:40)
[2024-07-03] MEDS: ATIVAN 1 MG IV (01:26)
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
[2024-07-03 04:04] LABS: % Basophils 0.3 % (0-2); % Eosinophils 1.6 % (0-6); % Immature Granulocytes 0.5 % (0-0.5); % Lymphocytes 7.8 % (20.5-51.1); % Monocytes 7.8 % (1.7-9.3); Absolute Eosinophils 0.2 10^3/uL (0-0.7); Absolute Immature Granulocytes 0.1 10^3/uL (0-0.05); Absolute Lymphocytes 0.9 10^3/uL (1.2-3.4); Absolute Monocytes 0.9 10^3/uL (0.1-0.6); Hematocrit 39.8 % (39.0-52.0); Hemoglobin 14.1 g/dL (13.0-18.0); Mean Corp Hgb Conc. 35.4 g/dL (33.0-37.0); Mean Corpuscular Hgb 34.5 pg (27.0-31.0); Mean Corpuscular Volume 97.3 fL (80.0-94.0); Mean Platelet Volume 9.5 fL (7.4-10.4); Nucleated Red Blood Cells % 0 % (-); Platelet Count 111 10^3/uL (130-400); Red Blood Cell Count 4.09 10^6/uL (4.70-6.10); Red Cell Dist. Width 12.9 % (11.5-14.5)
--- NOTE | 2024-07-03 04:17 | W.PN.UPDATE ---
Update Note
Progress Note Update
Despite interventions with restraints, Ativan, and phenobarbital, patient continues to be threatening to bedside nurse. Patient will be upgraded to ICU and started on Precedex drip.
[2024-07-03] MEDS: PRECEDEX 100 IV ×3 (04:20→20:34)
[2024-07-03 04:25] LABS: ALT (SGPT) 115 U/L (0-50); AST (SGOT) 91 U/L (17-59); Albumin 2.7 g/dl (3.5-5.0); Alkaline Phosphatase 129 U/L (38-126); Blood Urea Nitrogen 19 mg/dl (9-20); Calcium 7.6 mg/dl (8.4-10.2); Carbon Dioxide 28 mmol/L (22-30); Chloride 105 mmol/L (98-107); Estimated Creatinine Clearance 120 ml/min; Glucose 86 mg/dl (70-99); Potassium 3.6 mmol/L (3.5-5.1); Sodium 136 mmol/L (135-145); Total Bilirubin 1.6 mg/dl (0.2-1.3); eGFR > 60.00
--- NOTE | 2024-07-03 07:07 | PTCARENOTE ---
Report given verbally to RN assuming careErika. Questions answered.
[2024-07-03] MEDS: DUONEB 3 ML INH ×4 (07:38→19:59)
--- NOTE | 2024-07-03 07:57 | PN.CDI ---
CDI
- -
CDI:
Physician Documentation Request
Admit Date: 06/30/24 10:18
Dear Doctor Mirela,
Please review the following and provide your response in the progress notes.
Clinical Indicators:
Laboratory Tests
06/30/24 07/01/24 07/01/24
07:56 05:18 09:37
Total Bilirubin 1.2 2.4 H D 2.0 H
07/03/24
03:52
Total Bilirubin 1.6 H
Based on the above, please clarify in the progress notes, the appropriate diagnosis, if significant, that supports the above abnormalities and additional evaluation, monitoring and/or treatment rendered:
Elevated Total Bilirubin
Abnormal lab value, clinically insignificant
Other (please specify)
Use of terms such as suspected, likely, concern for, or probable (associated with a specific diagnosis that is being evaluated, monitored, or treated as if it exists) are acceptable and can be coded in the inpatient setting, when documented at the
time of discharge.
Thank you,
Kira Donahue RN BSN CCDS
CDI Specialist
Please contact via tiger text
Please use your independent medical judgment in providing your response.
[2024-07-03] MEDS: FOLVITE PO (08:06)
[2024-07-03] MEDS: PEPCID PO ×2 (08:06→19:31)
[2024-07-03] MEDS: ZESTRIL PO (08:07)
[2024-07-03] MEDS: VITAMIN B1 PO (08:07)
[2024-07-03] MEDS: PHENOBARBITAL 97.5 MG IV ×3 (08:11→21:40)
[2024-07-03] MEDS: NICODERM TRANSDERMAL 14 MG TRANSDERM (08:12)
[2024-07-03] MEDS: LIDOCAINE 4% PATCH 1 PATCH TOPICAL ×2 (08:12→08:13)
--- NOTE | 2024-07-03 08:16 | CON.INTV ---
Consultation
Consultation Request
Date/Time Consultation Requested: 07/03/2024 - 414
Date/Time Consultation Performed: 07/03/2024807
Requesting Provider: ANI Dennison
Performing Provider: Dr. Cherry
Reason for Consultation: EtOH withdrawal/DT requiring precedex
Medical History
-
Chief Complaint: Fall with left-sided hip pain
History of Present Illness:
74-year-old male active tobacco smoker with a past medical history of chronic alcoholism, hypertension, hyperlipidemia, history of skin cancer, osteoarthritis, history of carcinogen exposure, insomnia/parasomnia, RBBB, lumbar spondylosis, spinal
stenosis, history of prolonged QTc, history of RLE DVT (09/2020), and history of pneumonia who presents with fall with left-sided hip pain. Patient was at home when he tripped over a rug and fell onto his left hip. When EMS picked him up he was
given 100 mcg of fentanyl en route to the hospital here at . Hip XR showed a suspected minimally displaced left femoral neck fracture. CT head showed no acute intracranial abnormality, and CTA chest showed no acute abnormality in the chest and
no PE. Lower extremity duplex was checked and showed no evidence of DVT. Initial labs showed mild leukocytosis to 11.7, Hb 16.4, serum bicarbonate level 18, normal LFTs, proBNP 131, TSH 2.44, and COVID-19 antigen negative. Urine drug screen was
positive for fentanyl (although he did receive this and route to the hospital), with an alcohol level of 64. In the ER he was given 6 mg of morphine for pain control and then admitted to telemetry for a left hip fracture. Orthopedic surgery was
consulted and recommended surgical fixation with plan for left hip hemiarthroplasty. Patient had mild lower extremity swelling and cardiology was consulted due to possible CHF. There were no overt findings to suggest CHF. He did give 40 mg IV
Lasix while in the ER. Echo on 07/02/2024 showed preserved biventricular function with mildly enlarged RV, with LVEF 60-65% with normal regional wall motion, and no significant valvular disease. Patient started to develop alcohol withdrawal
symptoms on 07/02/2024 and was transferred to the IMU and started on phenobarbital. Unfortunately his agitation continued to worsen with hypertension and tachycardia and violence towards the nursing staff - he had to be restrained and given Ativan
and phenobarbital on the binding folder machine hours of 07/03/2024, and then was transferred to the ICU level of care for Precedex drip. Store Clerk Checker service is now consulted for additional management/recommendations.
Of note patient follows with us in the [facility] office with Dr. Wilson -last visit 11/24/2023. He is on Ambien at night due to history of insomnia. At that visit he was stable from a pulmonary perspective although continues to smoke and was down to 5
cigarettes a day that time. Given his history of a right lower extremity DVT, he had followed with hematology (Dr. Garcia), and hypercoagulable workup was reportedly negative and Eliquis was discontinued. He was told to follow-up with our office in
6 months. His last PFTs were in April 2022 showing no evidence of an obstructive or restrictive lung defect, with mildly reduced gas exchange capacity which normalized when accounting for alveolar volume involved in gas exchange (DLco: 69%;
DLco/VA: 77%).
Patient was seen and evaluated this morning. Started on precedex gtt overnight due to agitation and violence towards the nurses, and pulling out lines. He stood up on the bed yesterday and was very adamant about leaving the hospital. He remains
on 3-point restraints this morning. Heart rate 57 on Precedex at 0.4 mcg/kg/hr, BP 103/71 and saturating 97% on 3 L/min. Patient's , Susu, at bedside. She knows that her drinks often but she is not exactly sure how much she drinks.
She does know that he binges 'quite often.' He sometimes goes for some time without drinking and says that he is okay, although she does still believe that he drinks every single day regardless. Patient is currently sleeping in no acute distress,
although when he is awakened he becomes agitated very quickly.
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
stenosis, history of prolonged QTc while on trazodone, history of provoked right lower extremity DVT (09/2020), lichenoid dermatitis/eczema/psoriasis, history of pneumonia
PSHx: Lumbar laminectomy, cholecystectomy, left knee surgery x 2, appendectomy, tonsillectomy, gallbladder surgery, MILD of spine
Past Medical History
Past Medical History: Other (Above as per HPI)
Past Surgical History: Other (Above as per HPI)
Social History
Tobacco: Smoker (Actively smokes 0.25 PPD with a 35-[id number]-[id number] history)
Alcohol: Chronic Alcoholic (Also a binge drinker)
Drug: None
Personal:
Living: With Family
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
Family History
Family History: Cancer (Father (unknown type); Brother: Leukemia ([place] Eneida))
Allergies / Home Medications
Allergies
Allergy/AdvReac Type Severity Reaction Status Date / Time
erythromycin base Allergy Mild Itching Verified 07/01/24 01:21
Penicillins Allergy Unknown Unknown Verified 06/30/24 07:52
codeine AdvReac Nausea / Verified 06/30/24 07:52
Vomiting
Home Medications
�Medication �Instructions �Recorded �Confirmed �Last Taken �Type
Saccharomyces boulardii 250 mg 250 mg PO DAILY Gastrointestinal 06/06/19 07/01/24 1 Day Ago History
capsule Issue ~06/30/24
albuterol sulfate 90 mcg/actuation 2 puff inhalation R Q4HPRN PRN 06/06/19 07/01/24 Unknown History
aerosol inhaler sob/wheeze
atorvastatin 40 mg tablet 40 mg PO HS High Cholesterol 06/06/19 07/01/24 1 Day Ago History
~06/30/24
multivitamin with folic acid 400 1 tab PO DAILY Supplement 06/06/19 07/01/24 1 Day Ago History
mcg tablet (Tab-A-Marci) ~06/30/24
lidocaine 5 % topical patch 1 patch topical DAILY #7 patches 06/09/19 06/30/24 Unknown Rx
amlodipine 10 mg tablet 10 mg PO DAILY Blood Pressure 07/01/24 07/01/24 1 Day Ago History
~06/30/24
chlorthalidone 25 mg tablet 25 mg PO DAILY Blood Pressure 07/01/24 07/01/24 1 Day Ago History
~06/30/24
lisinopril 40 mg tablet 40 mg PO DAILY Blood Pressure 07/01/24 07/01/24 1 Day Ago History
~06/30/24
suvorexant 10 mg tablet 10 mg PO HS PRN insomnia 07/01/24 07/01/24 3 Days Ago History
~06/28/24
zolpidem 10 mg tablet 10 mg PO HS PRN insomnia 07/01/24 07/01/24 Unknown History
nicotine 21 mg/24 hr daily 21 mg transdermal DAILY Smoking 07/02/24 07/01/24 1 Day Ago History
transdermal patch Cessation ~06/30/24
Review of Systems
-
Unable to Obtain full review of systems at this time due to: Acuity
Vitals / Labs / Diagnostic Testing
Vital Signs
Temp Pulse Resp BP Pulse Ox
97.6 F 58 18 104/66 97
07/03/24 07:38 07/03/24 07:41 07/03/24 07:41 07/03/24 06:00 07/03/24 07:41
Lab Data
07/03/24 03:52
07/03/24 03:52
Laboratory Results
07/02/24
13:54
PT 13.1
INR 0.96
APTT 27.6
Microbiology
06/30/24 10:37 Nasal Swab Influenza Types A & B (RADHA) - Final
Negative for Influenza A & B, NAAT
Negative results must be combined with clinical observations
and patient history.
Nucleic Acid Amplification test (NAAT)performed on the
[employer] platform.
Diagnostic Testing:
Physical Exam
-
HEENT: Normocephalic and Anicteric
Cardiovascular: S1/S2, Rub (negative) and Peripheral Edema (negative)
Respiratory: Wheeze (negative), Rales (negative), Rhonchi (negative) and Non-Labored Respirations
GI: Soft, Distended (Abdominal obesity), Non Tender and Normal Bowel Sounds
Neurology: Tremors (negative) and Other (Sleeping/sedated while on Precedex drip)
Skin: Warm and Dry
General: Respiratory Distress (negative), Comfortable, Fever (negative), Chills (negative) and Sweats (negative)
Assessment
-
Assessment: 74-year-old male active tobacco smoker with a past medical history of chronic alcoholism, hypertension, hyperlipidemia, history of skin cancer, osteoarthritis, history of carcinogen exposure, insomnia/parasomnia, RBBB, lumbar
spondylosis, spinal stenosis, history of prolonged QTc, history of RLE DVT (09/2020), and history of pneumonia who presents with fall with left-sided hip pain. Patient was at home when he tripped over a rug and fell onto his left hip. When EMS
picked him up he was given 100 mcg of fentanyl en route to the hospital here at . Hip XR showed a suspected minimally displaced left femoral neck fracture. CT head showed no acute intracranial abnormality, and CTA chest showed no acute
abnormality in the chest and no PE. Lower extremity duplex was checked and showed no evidence of DVT. Initial labs showed mild leukocytosis to 11.7, Hb 16.4, serum bicarbonate level 18, normal LFTs, proBNP 131, TSH 2.44, and COVID-19 antigen
negative. Urine drug screen was positive for fentanyl (although he did receive this and route to the hospital), with an alcohol level of 64. In the ER he was given 6 mg of morphine for pain control and then admitted to telemetry for a left hip
fracture. Orthopedic surgery was consulted and recommended surgical fixation with plan for left hip hemiarthroplasty. Patient had mild lower extremity swelling and cardiology was consulted due to possible CHF. There were no overt findings to
suggest CHF. He did give 40 mg IV Lasix while in the ER. Echo on 07/02/2024 showed preserved biventricular function with mildly enlarged RV, with LVEF 60-65% with normal regional wall motion, and no significant valvular disease. Patient started to
develop alcohol withdrawal symptoms on 07/02/2024 and was transferred to the IMU and started on phenobarbital. Unfortunately his agitation continued to worsen with hypertension and tachycardia and violence towards the nursing staff - he had to be
restrained and given Ativan and phenobarbital on the binding folder machine hours of 07/03/2024, and then was transferred to the ICU level of care for Precedex drip. Store Clerk Checker service is now consulted for additional management/recommendations.
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
spondylosis, spinal stenosis, history of prolonged QTc while on trazodone, history of provoked right lower extremity DVT (09/2020), lichenoid dermatitis/eczema/psoriasis, history of pneumonia
Impression:
#Left femoral neck fracture due to fall
#Alcohol withdrawal with DT now on Precedex drip
#Leukocytosis likely reactive due to above
#Mild RV enlargement with normal RV systolic function (seen on TTE from 07/02/2024)
#Thrombocytopenia
#Hypochloremic, hyponatremia � likely due to reduced PO intake
#Transaminitis with hyperbilirubinemia � suspected to be due to acute liver injury from alcohol abuse although admission LFTs were WNL
#Tobacco use disorder
#Hypertension
#Hyperlipidemia
Plan:
- Continue Precedex drip - unable to wean at this point as he has paroxysmal awakening with violence towards staff
- Continue 3 point restraints
- Continue phenobarbital
- Continue MSAS
- Thiamine and folic acid
- Change PO meds to IV if applicable
- Nicotine patch
- Defer operative management to orthopedic surgery regarding his left femoral neck fracture
- Awaiting left hip hemiarthroplasty --> believe that he is stable for the OR today given that he remains hemodynamically stable with low oxygen requirements
- Pain control
- Continue to trend LFTs + T. bili
- Hepatitis panel showed no evidence of chronic infection
- Abdominal ultrasound on 07/01/2024 showed hepatic steatosis with no evidence of cirrhosis and the upper abdominal IVC appeared within normal limits; also no evidence of biliary ductal dilatation with normal CBD diameter
- Hold Lipitor in the setting of transaminitis; can resume once LFTs improved
- Maintain SpO2 >90-94%
- Wean down supplemental oxygen flow rate as tolerated while maintaining SpO2 as above
- Continue with DuoNebs QID
- prn nebulized bronchodilators - not currently bronchospastic
- Maintain MAP>65
- Currently on LR @ 100 cc/hr --> will place a stop date on this to avoid volume overload especially given lower extremity edema earlier on this hospital course
- Replete electrolytes with K>4, Mg>2
- Maintain euglycemia with goal BG 140-180
- Trend H/H and transfuse if needed to keep Hb>7g/dL; keep plt>20k, unless there is concern for bleeding then keep plt>50k
- Platelet count has dropped to 120 on 07/02/2024, and is 111 this morning. Very low probability for KASSANDRA (4T score: 3) given no recent heparin products in the last 30 days and he has developed this thrombocytopenia within 72 hours of admission.
Continue to monitor platelet count and transfuse if needed based on thresholds as stated above
- DVT ppx: start LMWH tonight
Continue ICU level care for this critically ill patient.
Critical care statement: A total of 38 minutes of critical care time was provided for this patient today. This includes management of unstable vital signs, evaluation of the patient at bedside, reviewing the patient's pertinent medical records
including radiographs, microbiology, laboratory evaluations, and discussion with primary team, consultants, pharmacy, nutrition, physical therapy, case management, charge nurse, critical care nursing, and respiratory therapy.
Data:
Left hip XR 06/30/2024: There is a lucency through the left femoral neck favored to represent a minimally displaced left femoral neck fracture, likely transcervical.
--- NOTE | 2024-07-03 08:32 | W.PN.UPDATE ---
Update Note
Progress Note Update
Patient resting in bed this morning. a bedside. I did not disturb patient. Events overnight noted. Patient currently on Precedex and in restraints. Tentative plan was for OR today for left hip hemiarthroplasty however, will need to be medically
optimized. Recommend bedrest and pain control as needed. Patient pending medical clearance for OR. Will continue to follow along.
--- NOTE | 2024-07-03 08:41 | PTCARENOTE ---
report received, assessments per work list. patient orient to self only, agitated and combative with care. medicated with dilaudid for pain. precedex per work list. condom cath replaced. monitor nsr with avb and bbb. exertional wheezing, coarse
breath sounds bilaterally with posterior inspiratory and expiratory wheezes. moist frequent nonproductive cough. abdomen obese. hyperactive bowel sounds. restraints maintained for patient and staff safety. spouse at bedside. updated with plan of
care. ortho PA at bedside. updated spouse
--- NOTE | 2024-07-03 11:17 | W.PN.HOSP.TC ---
Today's Communication/Plan
-
Tentative OR later today
Precedex
phenobarb
withdrawal protocol
Assessment / Plan
Assessment / Plan
General: Obese and Other (Eyes closed)
HEENT: Normocephalic, Atraumatic and Moist Mucous Membranes
Respiratory: wheezing b/l
Cardiac: Regular Rhythm and S1/S2; Negative Murmur, Rub or Gallop
GI: Soft, Nontender, Nondistended and Normal Bowel Sounds; Negative Organomegaly
Rectal: Deferred by Provider
Musculoskeletal: No Clubbing, No Cyanosis and No Edema
Skin: Negative Rash
Neuro: Awake; Negative Slurred Speech or Facial Droop
Psych: Confused
74yo M with PMHx of DJD, spinal canal stenosis, DVT LE completed anticoagulation, HLD, bronchiectatic disease, current smoker 0.5ppd, HTN, insomnia fell at night without LOC, found L femoral Fx awaiting Sx on 07/02/24
ALso alcohol dependency, watching for withdrawal and new LFT elevation without abdominal pain
A/P:
#Daily alcohol usage/abuse
#Acute alcohol withdrawal with hallucinations
#Elevated GGT/Elevated Total Bilirubin
Thiamine/Folate
Alcohol level elevated on admission - MSAS continues to be remain high
Continue patient on phenobarbital taper regimen.
Patient Lyons alcohol hepatitis score 7 Low DF. Plus steroids will make his agitation worse
Abdominal ultrasound with hepatic steatosis. Mild thrombocytopenia noted.
May need standing ativan if not much improvement
# Toxic metabolic encephalopathy likely secondary to severe alcohol withdrawal
Monitor mentation
Started on precedex
Monitor in ICU
#Fall without LOC
Ortho consult: surgical intervention planned for 07/02/24
Pain mgmt
PT/OT afterwards
Cards following. Appreciate perioperative stratification
Echo EF 60-65%. Normal regional wall motion. Mildly enlarged right ventricular size. Normal right ventricular systolic function.
Head CT without acute findings
bedrest till Surgery
Okay to proceed for surgery. Ortho informed. If need be, can extubate in ICU post op to avoid severe agitation in PACU.
#LE swelling (resolved)
#acute hypoxic insufficiency
#Elevated ddmer - 2/2 Fx
#COPD not in exacerbation
no wheezing on exam
ProBNP 131 - most likely not due to CHF
Suspect shallow breathing due to LLE pain and mild COPD
Cardiology followed
LE neg for DVT, no PE on CT chest
Incentive spirometry
wean off as tolerated
#Mild leukocytosis
most likely stress induced, resolved
COVID-19, Influenza PCR neg
follow CBC
#Nicotine dependency
#Daily tobacco abuse 1/2 to 1PPD for years
Nicoderm
#Obesity
BMI 31.5
advide to decrease calorie intake
#conjunctival redness
resolved
#HLD
#HTN
#Spinal stenosis on pain meds
COnt home meds
hold lisinopril
DVT ppx scds and post op per orthopedic
Full code - discussed in details with family and patient
Discussed with patient spouse at bedside in details
d/w with power electronics research engineer
d/w wtih ortho
Anticipated Discharge: > 48 hours
Subjective/Interval History
-
Date of Service: July 03, 2024
Overnight events noted
patient in restraints
started on precedex
MSAS score elevated
Objective Data
-
Labs:
Laboratory Results
07/03/24
03:52
WBC 11.0 H
Hgb 14.1
Hct 39.8
Plt Count 111 L
Sodium 136
Potassium 3.6
Chloride 105
Carbon Dioxide 28
BUN 19
Creatinine 0.7
Glucose 86
Calcium 7.6 L
Total Bilirubin 1.6 H
AST 91 H
ALT 115 H
Alkaline Phosphatase 129 H
Vital Signs:
Vital Signs
Temp Pulse Resp BP Pulse Ox
97.6 F 55 18 123/78 95
07/03/24 07:38 07/03/24 11:08 07/03/24 11:08 07/03/24 10:00 07/03/24 11:08
I&O
07/02/24 07/03/24 07/04/24
06:59 06:59 06:59
Intake Total 1920 / 1920 405 / 405 40.6 / 40.6
Output Total 750 / 750 625 / 625
Balance 1170 / 1170 -220 / -220 40.6 / 40.6
Data Reviewed
-
Total Time Spent with Patient (in minutes): 57
--- NOTE | 2024-07-03 11:46 | PTCARENOTE ---
reassessed. for probable OR today. preop care provided. room air pulse oximeter 86. titrated oxygen to 1 liter, sats 94. wheezing persistent. restraints maintained for patient safety. precedex per work list. no urine output since this am. bladder
scan 203
--- NOTE | 2024-07-03 13:18 | W.PN.CD ---
Today's Communication / Plan
-
Receiving withdrawal protocol
Echo unremarkable
We will sign off please call with questions/concerns.
Impression / Plan
-
74-year-old male with hypertension, hyperlipidemia, chronic continued cigarette use, bronchiectasis, DJD, spinal stenosis, and previous lower extremity DVT (status-post completed course of anticoagulation admitted after a fall after tripping over a
rug at home; found to have a left hip fracture. Cardiology consulted for possible CHF, given mild lower extremity swelling. Patient denies chest pain or shortness of breath; states that he had mild lower extremity swelling this morning after
falling--has not been progressive over the past few days or weeks.
Fall:
-Acute left hip fracture.
-Plan is for patient to go to the OR on Tuesday; can proceed as scheduled from a cardiac standpoint.
Possible CHF:
-Patient does not have any overt findings suggestive of CHF.
-Trace edema after fall; cardiac BNP is only 131.
-Given Lasix 40 mg IV in the ER; no further diuresis necessary at this point
-Echocardiogram below
Hypertension:
-Continue current dose of lisinopril.
Hyperlipidemia:
-Continue atorvastatin.
Chronic continued cigarette use:
-Counseled today on the importance of smoking cessation.
Obesity:
-Weight loss recommended.
Subjective: combative and agitated overnight, this AM resting, likley withdrawing
Echo: CONCLUSIONS
LV ejection fraction is 60-65%. Normal regional wall motion.
Mildly enlarged right ventricular size. Normal right ventricular systolic
function.
No significant valvular disease.
No significant change in overall cardiac function since the prior study of
11/22/2022. The right ventricle is now mildly enlarged.
Physical Exam
Vital Signs/Labs
Vital Signs
Temp Pulse Resp BP Pulse Ox
97.6 F 56 18 122/80 97
07/03/24 11:47 07/03/24 12:30 07/03/24 12:30 07/03/24 12:00 07/03/24 12:30
07/02/24 07/03/24 07/04/24
06:59 06:59 06:59
Actual Weight 232 lb 9.6 oz 225 lb 12.054 oz
07/03/24 03:52
07/03/24 03:52
PT 13.1 Sec (11.4-14.6) 07/02/24 13:54
INR 0.96 07/02/24 13:54
APTT 27.6 Sec (23.4-35.0) 07/02/24 13:54
Magnesium 2.0 mg/dl (1.6-2.3) 07/02/24 11:01
Triglycerides 188 mg/dl (10-149) H 07/01/24 05:18
LDL Cholesterol, Calc 60 mg/dl 07/01/24 05:18
VLDL Cholesterol, Calc 37 mg/dl (0-30) H 07/01/24 05:18
HDL Cholesterol 66 mg/dl 07/01/24 05:18
06/30/24
07:56
Pgu-X-Gclgfxeiyxh Pept 131
Physical Exam
Constitutional: No acute distress and Comfortable
EENT: Anicteric
Cardiovascular: Rhythm & rate is regular and Pedal edema is absent
Respiratory: Respiratory effort normal and Lungs clear to auscul.
GI: Soft
Neuro/Psych: Other (calm )
Data Reviewed
-
Date of Service: July 03, 2024
EKG: Tracing Personally Visualized and interpreted (sr)
Echo: Report Reviewed by me
Labs: Labs Reviewed by me
--- NOTE | 2024-07-03 15:15 | PTCARENOTE ---
reassessed. no changes. awaiting OR
[2024-07-03] MEDS: LR 1000 IV (16:16)
--- NOTE | 2024-07-03 17:26 | W.PN.ORTHO ---
Today's Communication / Plan
-
Optimize per ICU: wean sedation as able, pending anesthesia clearance
Pending operative fixation for left femoral neck fracture, left hip hemiarthroplasty pending
Recommended starting DVT PPX for prolonged recumbency, discontinue prior to OR; defer to ICU for anticoagulation orders
Will be available for OR when patient safe to proceed with surgery
Discussed plan with at bedside
Assessment
.
Dressing:
.
Assessment:
74M with left femoral neck fracture
Plan
.
Activity:
Out of bed.
PT/OT
Subjective
.
.:
Patient examined in ICU. Sedated and restrained. at bedside
Vital Signs and Labs
.
Vital Signs and Labs:
Lab Results
07/03/24 03:52
07/03/24 03:52
Temp Pulse Resp BP Pulse Ox
97.7 F 58 18 111/71 93
07/03/24 15:42 07/03/24 16:00 07/03/24 16:00 07/03/24 16:00 07/03/24 16:00
PT 13.1 Sec (11.4-14.6) 07/02/24 13:54
INR 0.96 07/02/24 13:54
Physical Exam
-
Palpable DP/PT pulses, brisk capillary refill
Patient unable to follow commands due to sedation
[2024-07-03] MEDS: LOVENOX 40 MG SC (17:39)
--- NOTE | 2024-07-03 18:04 | PTCARENOTE ---
OR on hold. lovenox resumed. precedex per work list. patient remains oriented to self only, but more cooperative and follows commands. wrist restraints maintained for patient safety
--- NOTE | 2024-07-03 20:00 | PTCARENOTE ---
assumed care, pt Ox2 disoriented to time, B/L wrist restraints, MSAS refer to worklist, drowsy arouses verbally, NS c first degree and BBB, trace anasarca, + pulses, lungs diminished and coarse c expiratory wheeze, SpO2 95 2L NC, BSx4 hyperactive,
CC#25 pt due to void, prophylactic foam on heels, elbows and sacrum, c/o of 8/10 L hip pain refer to MAR, 20G RFA, 22LFA, Dex 0.3, LR 100ml, safe environment provided otherwise refer to documentation.
[2024-07-03] MEDS: PEPCID 20 MG PO (21:39)
[2024-07-03] MEDS: MELATONIN 5 MG PO (21:40)
[2024-07-04] VITALS (26 sets, daily range): BP systolic 115–162; BP diastolic 72–102; BMI 30.9
--- NOTE | 2024-07-04 00:24 | PTCARENOTE ---
systems reviewed, MSAS per worklist, L hip pain treated per JUN, CHG bath, otherwise refer to documentation
[2024-07-04] MEDS: DILAUDID 0.5 MG IV ×8 (00:47→22:54)
[2024-07-04] MEDS: LR 1000 IV ×3 (01:55→20:53)
[2024-07-04] MEDS: ROXICODONE 5 MG PO ×3 (03:13→22:26)
--- NOTE | 2024-07-04 03:17 | PTCARENOTE ---
systems reviewed, labs sent, gtts titrated per worklist, pain management per JUN, otherwise refer documentation
[2024-07-04 03:30] LABS: % Basophils 0.3 % (0-2); % Eosinophils 1.7 % (0-6); % Immature Granulocytes 0.5 % (0-0.5); % Lymphocytes 7.9 % (20.5-51.1); % Monocytes 7.3 % (1.7-9.3); % Neutrophils 82.3 % (42.2-75.2); Absolute Eosinophils 0.2 10^3/uL (0-0.7); Absolute Immature Granulocytes 0.1 10^3/uL (0-0.05); Absolute Lymphocytes 0.8 10^3/uL (1.2-3.4); Absolute Monocytes 0.7 10^3/uL (0.1-0.6); Hematocrit 39.8 % (39.0-52.0); Hemoglobin 13.7 g/dL (13.0-18.0); Mean Corp Hgb Conc. 34.4 g/dL (33.0-37.0); Mean Corpuscular Hgb 33.9 pg (27.0-31.0); Mean Corpuscular Volume 98.5 fL (80.0-94.0); Mean Platelet Volume 9.3 fL (7.4-10.4); Nucleated Red Blood Cells % 0 % (-); Platelet Count 129 10^3/uL (130-400); Red Blood Cell Count 4.04 10^6/uL (4.70-6.10); White Blood Cell Count 9.8 10^3/uL (4.8-10.8)
[2024-07-04 03:59] LABS: ALT (SGPT) 90 U/L (0-50); AST (SGOT) 44 U/L (17-59); Albumin 3.1 g/dl (3.5-5.0); Alkaline Phosphatase 139 U/L (38-126); Blood Urea Nitrogen 26 mg/dl (9-20); Calcium 8.8 mg/dl (8.4-10.2); Carbon Dioxide 28 mmol/L (22-30); Chloride 97 mmol/L (98-107); Estimated Creatinine Clearance 103 ml/min; Glucose 95 mg/dl (70-99); Potassium 4.1 mmol/L (3.5-5.1); Sodium 132 mmol/L (135-145); Total Bilirubin 1.3 mg/dl (0.2-1.3); Total Protein 5.6 g/dl (6.3-8.2); eGFR > 60.00
--- NOTE | 2024-07-04 07:00 | PTCARENOTE ---
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 patient is AAOx3, pleasant, cooperative, MSAS 0. removed restraints. Precedex had been running at 0.2. turned off gtt. RASS 0. Patient is on 2L 97%. Has coarse breath sounds throughout and harsh non
productive cough. He is sinus rhythm with a BBB. Left leg ( affected limb) has some +2 edema, non pitting. Patient is NPO pending OR for hip fx. abdomen is obese, round, slightly firm. Condom cath is on, intact, may urine draining. IVF
infusing into right AC. will review orders, possible OR today.
[2024-07-04] MEDS: DUONEB 3 ML INH ×4 (07:38→21:40)
--- NOTE | 2024-07-04 07:43 | W.PN.UPDATE ---
Update Note
Progress Note Update
Mr. Daniels is resting comfortably in bed this morning. His upper extremities remain in restraints. Unfortunately, surgery was postponed yesterday due to continued difficulty with alcohol withdrawal. He endorses aching pain about the hip.
Directed exam of the left hip reveals no significant erythema, ecchymosis, edema or lesions. No significant tenderness to palpation about the hip. Thigh soft and compressible. Calf soft and nontender. Patient able to wiggle toes, plantar and
dorsiflex ankle. Neurovascularly intact distally.
Per Dr. Carlson:
--Optimize per ICU: wean sedation as able, pending anesthesia clearance
--Pending operative fixation for left femoral neck fracture, left hip hemiarthroplasty pending
--Recommended starting DVT PPX for prolonged recumbency, discontinue prior to OR; defer to ICU for anticoagulation orders
--Will be available for OR when patient safe to proceed with surgery
--Orthopedics will continue to follow along.
--- NOTE | 2024-07-04 08:08 | W.PN.INTV ---
Today's Communication / Plan
Recommendations
Now off Precedex drip and no longer in delirium tremens
Continue phenobarbital and MSAS as he still appears tremulous and in alcohol withdrawal
Thiamine + folic acid
Nicotine patch
Would consult [facility] to see him prior to discharge
Encourage incentive spirometer
Pain control
Wean down supplemental O2 while maintaining SpO2 >90-94%
Awaiting OR today for left hip hemiarthroplasty
Continue ICU level care while awaiting left hip surgery. If patient tolerates surgery and is not intubated postoperatively and remains hemodynamically stable with no signs of worsening alcohol withdrawal, then will downgrade out of ICU at that
time. Once downgraded then Clinical Documentation Improvement Specialist/Pulmonary service will sign off at that time. Please call back with any questions or concerns.
Assessment
-
Assessment: 74-year-old male active tobacco smoker with a past medical history of chronic alcoholism, hypertension, hyperlipidemia, history of skin cancer, osteoarthritis, history of carcinogen exposure, insomnia/parasomnia, RBBB, lumbar
spondylosis, spinal stenosis, history of prolonged QTc, history of RLE DVT (09/2020), and history of pneumonia who presents with fall with left-sided hip pain. Patient was at home when he tripped over a rug and fell onto his left hip. When EMS
picked him up he was given 100 mcg of fentanyl en route to the hospital here at . Hip XR showed a suspected minimally displaced left femoral neck fracture. CT head showed no acute intracranial abnormality, and CTA chest showed no acute
abnormality in the chest and no PE. Lower extremity duplex was checked and showed no evidence of DVT. Initial labs showed mild leukocytosis to 11.7, Hb 16.4, serum bicarbonate level 18, normal LFTs, proBNP 131, TSH 2.44, and COVID-19 antigen
negative. Urine drug screen was positive for fentanyl (although he did receive this and route to the hospital), with an alcohol level of 64. In the ER he was given 6 mg of morphine for pain control and then admitted to telemetry for a left hip
fracture. Orthopedic surgery was consulted and recommended surgical fixation with plan for left hip hemiarthroplasty. Patient had mild lower extremity swelling and cardiology was consulted due to possible CHF. There were no overt findings to
suggest CHF. He did give 40 mg IV Lasix while in the ER. Echo on 07/02/2024 showed preserved biventricular function with mildly enlarged RV, with LVEF 60-65% with normal regional wall motion, and no significant valvular disease. Patient started to
develop alcohol withdrawal symptoms on 07/02/2024 and was transferred to the IMU and started on phenobarbital. Unfortunately his agitation continued to worsen with hypertension and tachycardia and violence towards the nursing staff - he had to be
restrained and given Ativan and phenobarbital on the recovery engineer hours of 07/03/2024, and then was transferred to the ICU level of care for Precedex drip. Clinical Documentation Improvement Specialist service is now consulted for additional management/recommendations.
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
spondylosis, spinal stenosis, history of prolonged QTc while on trazodone, history of provoked right lower extremity DVT (09/2020), lichenoid dermatitis/eczema/psoriasis, history of pneumonia
Impression:
#Left femoral neck fracture due to fall
#Alcohol withdrawal with DT requiring Precedex drip --> now off precedex gtt and out of DT as of 07/04/2024
#Leukocytosis likely reactive due to above - WBC now normalized
#Mild RV enlargement with normal RV systolic function (seen on TTE from 07/02/2024)
#Thrombocytopenia - improving
#Hypochloremic, hyponatremia � likely due to reduced PO intake
#Transaminitis with hyperbilirubinemia � suspected to be due to acute liver injury from alcohol abuse although admission LFTs were WNL - LFTs improving and T bili now normalized
#Tobacco use disorder
#Hypertension
#Hyperlipidemia
Plan:
-Patient now off of Precedex drip as of this morning and he is much more himself, awake, calm, oriented and following all commands, now off restraints as well
- Would still continue phenobarbital given that he is still going through alcohol withdrawal despite him not being in DT any longer
- Continue MSAS
- Continue thiamine and folic acid
- Nicotine patch
- Defer operative management to orthopedic surgery regarding his left femoral neck fracture
- Awaiting left hip hemiarthroplasty --> believe that he is stable for the OR today given that he remains hemodynamically stable with low oxygen requirements and now off Precedex drip and out of delirium tremens
- Pain control
- Continue to trend LFTs; T. bili now normalized as of today
- Hepatitis panel showed no evidence of chronic infection
- Abdominal ultrasound on 07/01/2024 showed hepatic steatosis with no evidence of cirrhosis and the upper abdominal IVC appeared within normal limits; also no evidence of biliary ductal dilatation with normal CBD diameter
- Hold Lipitor in the setting of transaminitis; can resume by tomorrow if LFTs remain stable by then
- Maintain SpO2 >90-94% --> currently on 2 L/min nasal cannula saturating 93%
- Wean down supplemental oxygen flow rate as tolerated while maintaining SpO2 as above
- Continue with DuoNebs QID
- prn nebulized bronchodilators - not currently bronchospastic
- Maintain MAP>65
- Currently on LR @ 100 cc/hr --> will place a stop date on this to avoid volume overload especially given lower extremity edema earlier on this hospital course
- Replete electrolytes with K>4, Mg>2
- Maintain euglycemia with goal BG 140-180
- Trend H/H and transfuse if needed to keep Hb>7g/dL; keep plt>20k, unless there is concern for bleeding then keep plt>50k
- Platelet count has dropped to 120 on 07/02/2024, and is 111 this morning. Very low probability for KASSANDRA (4T score: 3) given no recent heparin products in the last 30 days and he has developed this thrombocytopenia within 72 hours of admission.
Continue to monitor platelet count and transfuse if needed based on thresholds as stated above
- DVT ppx: LMWH
Continue ICU level care while awaiting left hip surgery. If patient tolerates surgery and is not intubated postoperatively and remains hemodynamically stable with no signs of worsening alcohol withdrawal, then will downgrade out of ICU at that
time. Once downgraded then Clinical Documentation Improvement Specialist/Pulmonary service will sign off at that time. Please call back with any questions or concerns.
Data:
Left hip XR 06/30/2024: There is a lucency through the left femoral neck favored to represent a minimally displaced left femoral neck fracture, likely transcervical.
Total time spent today was 79 minutes for this encounter. Time includes reviewing laboratory test/imaging results, reviewing pertinent medical records, obtaining and reviewing medical history, performing an appropriate exam, ordering medications,
tests and procedures. Time also includes documentation of this encounter, coordinating patient care and communicating with other healthcare professionals. Total time does not include separately billed tests performed on this date of service.
Subjective Dataa
Subjective Data
Date of Service:
Date of Service: July 04, 2024
Chief Complaint: Clinical Documentation Improvement Specialist Follow Up
Subjective:
Patient seen and evaluated this morning. He is much more awake, cracking jokes, with his at bedside in addition to his [id number] + [id number] (Aditi + Gary Acosta; she is a mechanical engineering specialist and he is an ID doctor, both now retired).
Currently on LR at 100 cc/hr. BP 134/78, and heart rate 92. Saturating 96% with 2 L/min nasal cannula. Taken off Precedex this morning. Awaiting left hip hemiarthroplasty today in the afternoon. No longer restrained. Has L-sided hip pain.
Review of Systems
General: Other (Negative unless mentioned above)
Objective Data
Data Reviewed
Vital Signs / I&O / Oxygen:
Vital Signs
Temp Pulse Resp BP Pulse Ox
99.7 F 80 19 142/87 95
07/04/24 08:06 07/04/24 08:00 07/04/24 08:00 07/04/24 08:00 07/04/24 08:00
Intake and Output
07/03/24 07/04/24 07/05/24
06:59 06:59 06:59
Intake Total 405 / 405 2239.0 / 2344.2 305.2 / 305.2
Output Total 625 / 625 250 / 250
Balance -220 / -220 1989.0 / 2094.2 305.2 / 305.2
SaO2 95
Nasal Cannula flow liters per 2
minute
Physical Exam
General: Respiratory Distress (negative), Pain (left hip + LLE), Chills (negative) and Sweats (negative)
HEENT: Normocephalic and Anicteric
Cardiovascular: S1-S2, Rub (negative) and Peripheral Edema (negative)
Respiratory: Clear, Wheeze (negative), Crackles (negative), Rhonchi (negative) and Non-Labored Respirations
GI: Soft, Non Distended, Non Tender and Normal Bowel Sounds
Neurology: AO x 3 and Tremors (Positive)
Skin: Warm, Dry, Cyanosis (negative) and Jaundice (negative)
Labs/Micro/Reports
Lab Data
07/04/24 03:07
07/04/24 03:07
[2024-07-04] MEDS: NICODERM TRANSDERMAL 14 MG TRANSDERM (08:20)
[2024-07-04] MEDS: PEPCID 20 MG PO ×2 (08:21→22:49)
[2024-07-04] MEDS: VITAMIN B1 100 MG PO (08:21)
[2024-07-04] MEDS: LIDOCAINE 4% PATCH 1 PATCH TOPICAL ×2 (08:21)
[2024-07-04] MEDS: FOLVITE 1 MG PO (08:21)
--- NOTE | 2024-07-04 09:06 | PTCARENOTE ---
tiger text placed to Ortho and HMS regarding patient potentially going to the OR for hip fx. OR does not have patient on schedule. Precedex gtt stopped and holding phenobarbital until ICU rounds. Patient is completely mentally appropriate.
Removed wrist restraints.
[2024-07-04] MEDS: PHENOBARBITAL 97.5 MG IV ×2 (10:30→16:16)
--- NOTE | 2024-07-04 11:13 | W.PN.HOSP.TC ---
Today's Communication/Plan
-
IVF till OR
OR later today
Cont w/phenobarbital
post OP dvt ppx per ortho
monitor mentation
Assessment / Plan
Assessment / Plan
General: Obese and Other (Eyes closed)
HEENT: Normocephalic, Atraumatic and Moist Mucous Membranes
Respiratory: wheezing b/l improving
Cardiac: Regular Rhythm and S1/S2; Negative Murmur, Rub or Gallop
GI: Soft, Nontender, Nondistended and Normal Bowel Sounds; Negative Organomegaly
Rectal: Deferred by Provider
Musculoskeletal: No Clubbing, No Cyanosis and No Edema
Skin: Negative Rash
Neuro: Awake; Negative Slurred Speech or Facial Droop
Psych: Confused
74yo M with PMHx of DJD, spinal canal stenosis, DVT LE completed anticoagulation, HLD, bronchiectatic disease, current smoker 0.5ppd, HTN, insomnia fell at night without LOC, found L femoral Fx awaiting Sx on 07/02/24
ALso alcohol dependency, watching for withdrawal and new LFT elevation without abdominal pain
A/P:
#Daily alcohol usage/abuse
#Acute alcohol withdrawal with hallucinations
#Elevated GGT/Elevated Total Bilirubin
Thiamine/Folate
Alcohol level elevated on admission - MSAS improving
Continue patient on phenobarbital taper regimen.
Patient Rizwan alcohol hepatitis score 7 Low DF. Plus steroids will make his agitation worse
Abdominal ultrasound with hepatic steatosis. Mild thrombocytopenia noted.
May need standing ativan if not much improvement
# Toxic metabolic encephalopathy likely secondary to severe alcohol withdrawal
Monitor mentation
Weaned off precedex.
#Fall without LOC
Ortho consult: surgical intervention planned for 07/02/24
Pain mgmt
PT/OT afterwards
Cards following. Appreciate perioperative stratification
Echo EF 60-65%. Normal regional wall motion. Mildly enlarged right ventricular size. Normal right ventricular systolic function.
Head CT without acute findings
bedrest till Surgery
Plan for OR later today-all in agreement. Monitor post op closely.
#LE swelling (resolved)
#acute hypoxic insufficiency
#Elevated ddmer - 2/2 Fx
#COPD not in exacerbation
no wheezing on exam
ProBNP 131 - most likely not due to CHF
Suspect shallow breathing due to LLE pain and mild COPD
Cardiology followed
LE neg for DVT, no PE on CT chest
Incentive spirometry
wean off as tolerated
#Mild leukocytosis
most likely stress induced, resolved
COVID-19, Influenza PCR neg
follow CBC
#Nicotine dependency
#Daily tobacco abuse 1/2 to 1PPD for years
Nicoderm
#Obesity
BMI 31.5
advide to decrease calorie intake
#conjunctival redness
resolved
#HLD
#HTN
#Spinal stenosis on pain meds
COnt home meds
hold lisinopril
DVT ppx scds and post op per orthopedic
Full code - discussed in details with family and patient
Discussed with patient spouse at bedside in details
d/w with stitchdown toe former
d/w wtih ortho
Anticipated Discharge: > 48 hours
Subjective/Interval History
-
Date of Service: July 04, 2024
calm
not agitated
states of hip pain
Objective Data
-
Labs:
Laboratory Results
07/04/24
03:07
WBC 9.8
Hgb 13.7
Hct 39.8
Plt Count 129 L
Sodium 132 L
Potassium 4.1
Chloride 97 L
Carbon Dioxide 28
BUN 26 H
Creatinine 0.8
Glucose 95
Calcium 8.8
Total Bilirubin 1.3
AST 44
ALT 90 H
Alkaline Phosphatase 139 H
Vital Signs:
Vital Signs
Temp Pulse Resp BP Pulse Ox
99.7 F 80 19 142/87 95
07/04/24 08:06 07/04/24 08:00 07/04/24 08:00 07/04/24 08:00 07/04/24 08:00
I&O
07/03/24 07/04/24 07/05/24
06:59 06:59 06:59
Intake Total 405 / 405 2239.0 / 2344.2 305.2 / 305.2
Output Total 625 / 625 250 / 250
Balance -220 / -220 1989.0 / 4.2 305.2 / 305.2
Data Reviewed
-
Total Time Spent with Patient (in minutes): 55
--- NOTE | 2024-07-04 12:23 | PTCARENOTE ---
no change in patient's assessment. patient continues to have left hip pain. anesthesia cleared him for OR. Patient to have hip surgery after 1500.
[2024-07-04] MEDS: NORVASC 5 MG PO (12:30)
--- NOTE | 2024-07-04 15:23 | CM ---
CM following re: discharge planning.
Reviewed pt's chart, met with pt and pt's spouse at bedside.
Per MD, surgery was postponed yesterday due to continued difficulty with alcohol withdrawal and will be available for OR when patient safe to proceed with surgery.
Both pt and his spouse requested only [facility], strongly declined SNF level of care. Per pt is [facility] is not an options, then he will return back home with services.
[facility] director following.
PT and OT will evaluate the pt after surgery to determine a level of care at discharge.
D/C plan: both pt and his spouse requested [facility].
CM will follow with discharge plan updates as hospitalization progresses
--- NOTE | 2024-07-04 15:40 | PTCARENOTE ---
States Dilaudid did not really help the hip pain and has discomfort with any movement. Report given to the OR staff- plan is to go to the OR shortly.
--- NOTE | 2024-07-04 15:45 | PTCARENOTE ---
Rec'd pt at 1435 resting in bed. Alert and oriented visiting with his family, awaiting OR later this afternoon. Admitted to 910 L hip pain. Medicated with Dilaudid 0.5 mg IV at 1445. C/O discomfort with any movement of his Leg. Skin is pale pink
wm and dry. Respirs are unlabored on 2L nc. Lungs are clear. Monitor SR-ST with BB config. + pulses. No edema. VS as documented. Denies chest pain. Abd is obese/round with + BS. Remains NPO. Condom cath in place - voiding yellow urine. Capped int
intact L forearm. IV LR infusing at 100 ml/hr via RAC IV site. MSAS is a 2. Call weaver in reach. Plan of care reviewed with pt and family.
--- NOTE | 2024-07-04 16:40 | PTCARENOTE ---
Taken to OR via bed. No changes in assessment. Report given to PACU staff.
--- NOTE | 2024-07-04 18:32 | PTCARENOTE ---
Rec'd pt at 1435 resting in bed. Alert and oriented visiting with his family, awaiting OR later this afternoon. Admitted to 9/10 L hip pain. Medicated with Dilaudid 0.5 mg IV at 1445. C/O discomfort with any movement of his Leg. Skin is pale pink
wm and dry. Respirs are unlabored on 2L nc. Sats 93-95%. Lungs are clear but decreased. Gets up to 3000 on IS. Monitor SR-ST with BB config. + pulses. +1 LLE edema. VS as documented. Denies chest pain. Abd is obese/round with + BS. Remains NPO.
Condom cath in place - voiding yellow/may urine. Capped int intact L forearm. IV LR infusing at 100 ml/hr via RAC IV site. MSAS is a 2. Call weaver in reach. Plan of care reviewed with pt and family.
[2024-07-04] MEDS: DUONEB INH (19:21)
--- NOTE | 2024-07-04 20:30 | PTCARENOTE ---
Addendum entered by Marbella Bob RN 07/05/24 03:30:
Abdomen distended but soft, bowel sounds + x4 quadrants, tympanic abdomen. Reportedly by OR nurse, patient had Large BM while in OR.
Original Note:
Patient received from the OR via bed accompanied by RN and anesthesiologist. Patient now being recovered from anesthesia. Patient is somnolent but opens eyes to name spoken, unable to stay awake. Does not shake head yes/no to questions asked, is not
verbally answering questions. On simple mask oxygen at 8L. Patient is grossly diaphoretic. Skin color sallow. Left hip with telfa like dressing covered by tegaderm. LLE with foot cool, good pulses. Abductor pillow in place. Condom cath in place,
may urine in bag. Afebrile, 98.4F. VSS. SR on CM with 1st degree AVB and BBB. S1S2 regular with positive murmur. LFA IV site is infiltrated, dc'd, catheter intact. Right AC #20 IV site with good blood return, IVF per order. New IV site started
right FA #20. BBS with expiratory wheezes t/o, right lung coarse. Harsh loose NPC. Respiratory therapy contacted for respiratory treatment. Bed in low and locked position. Call light within reach. RN at bedside for recovery.
--- NOTE | 2024-07-04 21:00 | PTCARENOTE ---
Oxygen decreased to 4L simple mask. Left hip xray performed at bedside. Prn pain medication given. Complete CHG bath given, leads changed. Condom cath loose. New #30 condom catheter placed. See MAR for prn pain med administration.
--- NOTE | 2024-07-04 21:05 | W.IMMPOSTOP ---
Addendum entered and electronically signed by John Carlson MD 07/04/24 21:19:
DVT PPX: ASA 325mg PO QD for 4 weeks
Original Note:
Surgical Immed Post Op Note
-
Primary Surgeon: John Carlson MD
Assisting Surgeon: Nany Hirsch PA-C
Pre-op Diagnosis: left femoral neck fracture
Post-op Diagnosis: left femoral neck fracture
Procedure Performed: left hip hemiarthroplasty
Anesthesia Type: general
Specimen / Cultures: none
Estimated Blood Loss: 100mL
Complications: none apparent
Operative Findings: left femoral neck fracture
Implants: [employer] stem size 14, cemented; Unipolar head size 52mm
Operative dictation #: [id number]
[2024-07-04] MEDS: ASPIRIN 325 MG PO (22:48)
[2024-07-04] MEDS: MELATONIN PO (22:49)
[2024-07-04] MEDS: LUMINAL 64.8 MG PO (22:52)
--- NOTE | 2024-07-04 23:35 | PTCARENOTE ---
Patient readied for bed. Remains afebrile. VSS. No change on CM. BBS with scattered wheezes but improved. Pain is improving. Advised to call if having pain or needs assistance. Verbalized understanding. Taking oral fluids without difficulty.
Neurovascularly stable LLE. Rest of physical assessment unchanged.
[2024-07-04] MEDS: ANCEF 5 IV (23:46)
[2024-07-05] VITALS (17 sets, daily range): BP systolic 112–1363; BP diastolic 73–95; PULSE 96–110; BMI 31.9
--- NOTE | 2024-07-05 04:00 | PTCARENOTE ---
Appears to be sleeping comfortably when undisturbed with eyes closed, lying still, respirations non labored, saturating well on 2L/nc. Rouses easily to name called. MSAS 1. VSS. No change on CM. BBS with intermittent expiratory wheezes. DB & C
encouraged. Denies urge to void, condom cath in place. LLE with 1-2+ edema, neurovascularly intact.
[2024-07-05] MEDS: ROXICODONE 5 MG PO ×3 (04:48→18:35)
[2024-07-05] MEDS: DILAUDID 0.5 MG IV ×5 (04:49→23:09)
--- NOTE | 2024-07-05 05:00 | PTCARENOTE ---
Patient voided, some clear may urine collected in bag but condom catheter leaked. Pad saturated. Partial CHG bath, complete linen change. Left hip dressing remains dry. Abductor pillow in place and damp. Covidian pad placed around end of abductor
pillow to prevent skin irritation. New pillow requested from [facility]. New #25 condom catheter donned. AM labs drawn.
[2024-07-05 05:38] LABS: % Basophils 0.1 % (0-2); % Immature Granulocytes 0.5 % (0-0.5); % Lymphocytes 3.9 % (20.5-51.1); % Monocytes 6.6 % (1.7-9.3); % Neutrophils 88.9 % (42.2-75.2); Absolute Immature Granulocytes 0.1 10^3/uL (0-0.05); Absolute Lymphocytes 0.5 10^3/uL (1.2-3.4); Absolute Monocytes 0.8 10^3/uL (0.1-0.6); Absolute Neutrophils 10.3 10^3/uL (1.4-6.5); Hematocrit 40.8 % (39.0-52.0); Hemoglobin 14.3 g/dL (13.0-18.0); Mean Corpuscular Hgb 34.6 pg (27.0-31.0); Mean Corpuscular Volume 98.8 fL (80.0-94.0); Mean Platelet Volume 9.2 fL (7.4-10.4); Nucleated Red Blood Cells % 0 % (-); Platelet Count 146 10^3/uL (130-400); Red Blood Cell Count 4.13 10^6/uL (4.70-6.10); White Blood Cell Count 11.6 10^3/uL (4.8-10.8)
[2024-07-05 05:58] LABS: ALT (SGPT) 138 U/L (0-50); AST (SGOT) 159 U/L (17-59); Albumin 3.4 g/dl (3.5-5.0); Alkaline Phosphatase 259 U/L (38-126); Blood Urea Nitrogen 23 mg/dl (9-20); Calcium 8.5 mg/dl (8.4-10.2); Carbon Dioxide 28 mmol/L (22-30); Chloride 96 mmol/L (98-107); Estimated Creatinine Clearance 105 ml/min; Glucose 119 mg/dl (70-99); Magnesium 1.9 mg/dl (1.6-2.3); Potassium 4.6 mmol/L (3.5-5.1); Sodium 132 mmol/L (135-145); Total Protein 6.1 g/dl (6.3-8.2); eGFR > 60.00
[2024-07-05] MEDS: LR 1000 IV (06:44)
--- NOTE | 2024-07-05 07:12 | PTCARENOTE ---
Report given verbally to RN assuming careGigi. Questions answered.
[2024-07-05] MEDS: DUONEB 3 ML INH ×4 (07:43→20:53)
[2024-07-05] MEDS: LIDOCAINE 4% PATCH 1 PATCH TOPICAL ×2 (07:48)
[2024-07-05] MEDS: ASPIRIN 325 MG PO (07:49)
[2024-07-05] MEDS: PEPCID 20 MG PO ×2 (07:49→19:46)
[2024-07-05] MEDS: VITAMIN B1 100 MG PO (07:49)
[2024-07-05] MEDS: FOLVITE 1 MG PO (07:50)
[2024-07-05] MEDS: NICODERM TRANSDERMAL 14 MG TRANSDERM (07:50)
[2024-07-05] MEDS: LUMINAL 64.8 MG PO (07:50)
[2024-07-05] MEDS: ANCEF 5 IV (07:51)
[2024-07-05] MEDS: NORVASC 5 MG PO (07:51)
--- NOTE | 2024-07-05 07:58 | PTCARENOTE ---
Assumed care of pt. approx 0700.
Pt. offering no complaints of pain or discomfort.
Neurologically intact normocephalic/anicteric appearing sclera. Focally intact.
NSR w.o ectopy, Normotensive, Normothermic. All pulses palp. Neurovasc checks benign.
Adequate urine op. Euglycemic. will cx to advance diet.
All questions answered plan of care explained.
--- NOTE | 2024-07-05 08:11 | W.PN.ORTHO ---
Today's Communication / Plan
-
PT/OT
Abductor pillow in place while in bed
Weight-bear as tolerated with walker
Aspirin for DVT prophylaxis along with mechanical devices
Orthopedics to continue to follow
Skin clip removal 2 weeks postop
Assessment
.
Distal Motor Intact: Yes
Dressing:
Clean, dry and intact.
Plan
.
Surgery / Date: Left hip hemiarthroplasty 07/04 [facility]
DVT Prophylaxis: Aspirin
Activity:
Out of bed.
PT/OT
Discharge Plan: SNF
Subjective
.
.:
Patient resting comfortably.
Vital Signs and Labs
.
Vital Signs and Labs:
Lab Results
07/05/24 05:05
07/05/24 05:05
Temp Pulse Resp BP Pulse Ox
98 F 89 16 156/95 96
07/05/24 04:00 07/05/24 08:00 07/05/24 08:00 07/05/24 08:00 07/05/24 08:05
PT 13.1 Sec (11.4-14.6) 07/02/24 13:54
INR 0.96 07/02/24 13:54
--- NOTE | 2024-07-05 09:00 | PTCARENOTE ---
Diet upgraded to CHO Lowering,
Pt. downgraded tele.
--- NOTE | 2024-07-05 10:54 | W.PN.HOSP.TC ---
Today's Communication/Plan
-
Transfer out of ICU
Start with PT and OT
Pain control
Continue with phenobarbital
Off Precedex
Aspirin for DVT prophylaxis
Monitor mentation
Assessment / Plan
Assessment / Plan
General: Obese and awake,
HEENT: Normocephalic, Atraumatic and Moist Mucous Membranes
Respiratory: wheezing b/l improving
Cardiac: Regular Rhythm and S1/S2; Negative Murmur, Rub or Gallop
GI: Soft, Nontender, Nondistended and Normal Bowel Sounds; Negative Organomegaly
Rectal: Deferred by Provider
Musculoskeletal: No Clubbing, No Cyanosis and No Edema
Skin: Negative Rash
Neuro: Awake; Negative Slurred Speech or Facial Droop
Psych: Awake.
74yo M with PMHx of DJD, spinal canal stenosis, DVT LE completed anticoagulation, HLD, bronchiectatic disease, current smoker 0.5ppd, HTN, insomnia fell at night without LOC, found L femoral Fx awaiting Sx on 07/02/24
ALso alcohol dependency, watching for withdrawal and new LFT elevation without abdominal pain
A/P:
#Daily alcohol usage/abuse
#Acute alcohol withdrawal with hallucinations
#Elevated GGT/Elevated Total Bilirubin
Thiamine/Folate
Alcohol level elevated on admission - MSAS improving
Continue patient on phenobarbital taper regimen.
Patient [place] alcohol hepatitis score 7 Low DF. Would not benefit from steroids
Abdominal ultrasound with hepatic steatosis. Mild thrombocytopenia noted.
complete course of phenobarbital
# Toxic metabolic encephalopathy likely secondary to severe alcohol withdrawal
Monitor mentation
Weaned off precedex.
#Fall without LOC
Ortho consult: surgical intervention planned for 07/02/24
Pain mgmt
PT/OT afterwards
Cards following. Appreciate perioperative stratification
Echo EF 60-65%. Normal regional wall motion. Mildly enlarged right ventricular size. Normal right ventricular systolic function.
Head CT without acute findings
Status post left hip hemiarthroplasty on 07/04/[address] Carlson
Started on aspirin for DVT prophylaxis
#LE swelling (resolved)
#acute hypoxic insufficiency
#Elevated ddmer - 2/2 Fx
#COPD not in exacerbation
no wheezing on exam
ProBNP 131 - most likely not due to CHF
Suspect shallow breathing due to LLE pain and mild COPD
Cardiology followed
LE neg for DVT, no PE on CT chest
Incentive spirometry
wean off as tolerated
#Mild leukocytosis
most likely stress induced, resolved
COVID-19, Influenza PCR neg
follow CBC
#Nicotine dependency
#Daily tobacco abuse 1/2 to 1PPD for years
Nicoderm
#Obesity
BMI 31.5
advide to decrease calorie intake
Mild hyponatremia
monitor for now
#conjunctival redness
resolved
#HLD
#HTN
#Spinal stenosis on pain meds
COnt home meds
hold lisinopril
DVT ppx scds and post op per orthopedic
Full code - discussed in details with family and patient
Tx to tele 2S
Anticipated Discharge: > 48 hours
Subjective/Interval History
-
Date of Service: July 05, 2024
Pt awake and alert.
no hallucinations noted
Off Precedex since yesterday morning
Objective Data
-
Labs:
Laboratory Results
07/05/24
05:05
WBC 11.6 H
Hgb 14.3
Hct 40.8
Plt Count 146
Sodium 132 L
Potassium 4.6
Chloride 96 L
Carbon Dioxide 28
BUN 23 H
Creatinine 0.8
Glucose 119 H
Calcium 8.5
Total Bilirubin 1.0
AST 159 H
ALT 138 H
Alkaline Phosphatase 259 H
Vital Signs:
Vital Signs
Temp Pulse Resp BP Pulse Ox
98.4 F 85 11 137/76 96
07/05/24 08:00 07/05/24 10:00 07/05/24 09:00 07/05/24 09:00 07/05/24 09:00
I&O
07/04/24 07/05/24 07/06/24
06:59 06:59 06:59
Intake Total 2239.0 / 2344.2 2495.2 / 2695.2 420 / 420
Output Total 250 / 250 585 / 785 600 / 600
Balance 1989.0 / 4.2 1910.2 / 1910.2 -180 / -180
Data Reviewed
-
Total Time Spent with Patient (in minutes): 55
--- NOTE | 2024-07-05 13:09 | PTCARENOTE ---
Pt received as transfer from ICU. AAOx3. NSR on tele, HRs 90s. SpO2 96% on 2L nasal cannula. Neurovascular checks WDL. L hip surgical dressing CDI. Abductor pillow in place. Pt complaining of 8/10 L hip pain. PRN 0.5mg IV Dilaudid given. Pt resting
in bed, call weaver in reach. at bedside.
[2024-07-05] MEDS: LUMINAL 32.4 MG PO ×2 (16:20→21:12)
--- NOTE | 2024-07-05 17:11 | CM ---
Met with patient and
PT rec Acute vs. Home
Spoke with Rosio from [facility] who states she spoke with patient
CM to reach out to Rosio tomorrow regarding bed availability
PLAN: Acute rehab, pending bed availability
[2024-07-05] MEDS: MELATONIN 5 MG PO (21:11)
[2024-07-06] MEDS: ROXICODONE 5 MG PO ×2 (02:18→09:32)
[2024-07-06 03:10] VITALS: BP 138/89
[2024-07-06] MEDS: DILAUDID 0.5 MG IV (04:57)
[2024-07-06 06:00] VITALS: BMI 32.8
[2024-07-06] MEDS: DUONEB 3 ML INH (07:17)
--- NOTE | 2024-07-06 07:29 | W.PN.ORTHO ---
Today's Communication / Plan
-
74M POD2 left hip hemiarthroplasty with Dr. Carlson
-Weightbearing as tolerated with posterior precautions x 6 weeks with assist devices as indicated
-PT/OT/discharge planning
-DVT PPx per primary ASA daily x 30 days unless recommend otherwise per primary
-Pain control with current regimen
-Diet per primary
Discharge information up-to-date; orthopedic surgery will follow peripherally
Assessment
.
Distal Motor Intact: Yes
Dressing:
Clean, dry and intact.
Plan
.
Surgery / Date: Left hip hemiarthroplasty 07/04 [facility]
DVT Prophylaxis: Aspirin
Activity:
Out of bed.
PT/OT
Subjective
.
.:
Patient resting comfortably.
Vital Signs and Labs
.
Vital Signs and Labs:
Temp Pulse Resp BP Pulse Ox
98.8 F 83 16 138/89 98
07/06/24 03:10 07/06/24 03:10 07/06/24 07:20 07/06/24 03:10 07/06/24 07:20
PT 13.1 Sec (11.4-14.6) 07/02/24 13:54
INR 0.96 07/02/24 13:54
[2024-07-06 08:00] VITALS: BP 146/79
[2024-07-06 08:39] LABS: ALT (SGPT) 66 U/L (0-50); AST (SGOT) 56 U/L (17-59); Albumin 3.6 g/dl (3.5-5.0); Alkaline Phosphatase 194 U/L (38-126); Blood Urea Nitrogen 17 mg/dl (9-20); Calcium 8.7 mg/dl (8.4-10.2); Carbon Dioxide 27 mmol/L (22-30); Chloride 95 mmol/L (98-107); Estimated Creatinine Clearance 95 ml/min; Glucose 107 mg/dl (70-99); Potassium 3.8 mmol/L (3.5-5.1); Sodium 133 mmol/L (135-145); Total Bilirubin 1.2 mg/dl (0.2-1.3); Total Protein 6.2 g/dl (6.3-8.2); eGFR > 60.00
[2024-07-06 08:42] LABS: % Basophils 0.3 % (0-2); % Eosinophils 0.7 % (0-6); % Immature Granulocytes 0.8 % (0-0.5); % Lymphocytes 12.6 % (20.5-51.1); % Monocytes 12.6 % (1.7-9.3); Absolute Eosinophils 0.1 10^3/uL (0-0.7); Absolute Immature Granulocytes 0.1 10^3/uL (0-0.05); Absolute Lymphocytes 1.5 10^3/uL (1.2-3.4); Absolute Monocytes 1.5 10^3/uL (0.1-0.6); Absolute Neutrophils 8.5 10^3/uL (1.4-6.5); Hematocrit 37.7 % (39.0-52.0); Hemoglobin 13.1 g/dL (13.0-18.0); Mean Corp Hgb Conc. 34.7 g/dL (33.0-37.0); Mean Corpuscular Hgb 34.4 pg (27.0-31.0); Mean Platelet Volume 9.5 fL (7.4-10.4); Nucleated Red Blood Cells % 0 % (-); Platelet Count 182 10^3/uL (130-400); Red Blood Cell Count 3.81 10^6/uL (4.70-6.10); Red Cell Dist. Width 13.1 % (11.5-14.5); White Blood Cell Count 11.6 10^3/uL (4.8-10.8)
[2024-07-06] MEDS: LIDOCAINE 4% PATCH 1 PATCH TOPICAL ×2 (09:31→09:32)
[2024-07-06] MEDS: PEPCID 20 MG PO (09:32)
[2024-07-06] MEDS: ASPIRIN 325 MG PO (09:32)
[2024-07-06] MEDS: ZESTRIL 20 MG PO (09:33)
[2024-07-06] MEDS: FOLVITE 1 MG PO (09:33)
[2024-07-06] MEDS: VITAMIN B1 100 MG PO (09:35)
[2024-07-06] MEDS: NICODERM TRANSDERMAL 14 MG TRANSDERM (09:35)
[2024-07-06] MEDS: NORVASC 5 MG PO (09:35)
[2024-07-06] MEDS: LUMINAL 32.4 MG PO (09:35)
[2024-07-06 11:10] VITALS: BP 123/78
--- NOTE | 2024-07-06 11:40 | W.PN.HOSP.TC ---
Today's Communication/Plan
-
Pain control
Start probiotic
Monitor blood pressure
Acute rehab pending bed availability and insurance
Assessment / Plan
Assessment / Plan
General: Obese and awake,
HEENT: Normocephalic, Atraumatic and Moist Mucous Membranes
Respiratory: wheezing b/l improving
Cardiac: Regular Rhythm and S1/S2; Negative Murmur, Rub or Gallop
GI: Soft, Nontender, Nondistended and Normal Bowel Sounds; Negative Organomegaly
Rectal: Deferred by Provider
Musculoskeletal: No Clubbing, No Cyanosis and No Edema
Skin: Negative Rash
Neuro: Awake; Negative Slurred Speech or Facial Droop
Psych: Awake.
74yo M with PMHx of DJD, spinal canal stenosis, DVT LE completed anticoagulation, HLD, bronchiectatic disease, current smoker 0.5ppd, HTN, insomnia fell at night without LOC, found L femoral Fx awaiting Sx on 07/02/24
ALso alcohol dependency, watching for withdrawal and new LFT elevation without abdominal pain
A/P:
#Daily alcohol usage/abuse
#Acute alcohol withdrawal with hallucinations
#Elevated GGT/Elevated Total Bilirubin
Thiamine/Folate
Alcohol level elevated on admission - MSAS improving
Continue patient on phenobarbital taper regimen.
Patient [place] alcohol hepatitis score 7 Low DF. Would not benefit from steroids
Abdominal ultrasound with hepatic steatosis. Mild thrombocytopenia noted which has resolved
complete course of phenobarbital and probably can be stopped on discharge.
# Toxic metabolic encephalopathy likely secondary to severe alcohol withdrawal
Monitor mentation. Back to baseline mentation.
Weaned off precedex.
#Fall without LOC
Ortho consult: surgical intervention planned for 07/02/24
Pain mgmt
PT/OT afterwards
Cards following. Appreciate perioperative stratification
Echo EF 60-65%. Normal regional wall motion. Mildly enlarged right ventricular size. Normal right ventricular systolic function.
Head CT without acute findings
Status post left hip hemiarthroplasty on 07/04/[address] Carlson
Started on aspirin for DVT prophylaxis
Pain control adjusted.
#LE swelling (resolved)
#acute hypoxic insufficiency
#Elevated ddmer - 2/2 Fx
#COPD not in exacerbation
no wheezing on exam
ProBNP 131 - most likely not due to CHF
Suspect shallow breathing due to LLE pain and mild COPD
Cardiology followed
LE neg for DVT, no PE on CT chest
Incentive spirometry
wean off as tolerated
#Mild leukocytosis
most likely stress induced, resolved
COVID-19, Influenza PCR neg
follow CBC
# Hypertension
On multiple medications outpatient
Norvasc has been restarted 5 mg
Lisinopril has been restarted 20 mg
Chlorthalidone has been held
If blood pressure persistently elevated can increase dose of Norvasc.
Blood pressure currently 123/78
#Nicotine dependency
#Daily tobacco abuse 1/2 to 1PPD for years
Nicoderm
#Obesity
BMI 31.5
advide to decrease calorie intake
Mild hyponatremia
monitor for now
#conjunctival redness
resolved
#HLD
#Spinal stenosis on pain meds
DVT ppx scds and post op per orthopedic
Full code - discussed in details with family and patient
Discussed with spouse at bedside in detail
PT/OT acute rehab. Plan for [facility] pending bed availability.
Anticipated Discharge: Within 24 hours
Subjective/Interval History
-
Date of Service: July 06, 2024
Sitting in chair
States of abdominal cramps
Having bowel movements
Objective Data
-
Labs:
Laboratory Results
07/06/24
06:38
WBC 11.6 H
Hgb 13.1
Hct 37.7 L
Plt Count 182 D
Sodium 133 L
Potassium 3.8
Chloride 95 L
Carbon Dioxide 27
BUN 17
Creatinine 0.9
Glucose 107 H
Calcium 8.7
Total Bilirubin 1.2
AST 56
ALT 66 H
Alkaline Phosphatase 194 H
Vital Signs:
Vital Signs
Temp Pulse Resp BP Pulse Ox
98.7 F 93 18 123/78 96
07/06/24 11:10 07/06/24 11:10 07/06/24 11:10 07/06/24 11:10 07/06/24 11:10
I&O
07/05/24 07/06/24 07/07/24
06:59 06:59 06:59
Intake Total 2495.2 / 2695.2 657 / 657
Output Total 585 / 785 1300 / 1300
Balance 1910.2 / 1910.2 -643 / -643
Data Reviewed
-
Total Time Spent with Patient (in minutes): 55
[2024-07-06] MEDS: DUONEB INH (11:46)
[2024-07-06] MEDS: ROXICODONE 10 MG PO (11:49)
[2024-07-06] MEDS: VISBIOME 2 CAP PO (11:49)
[2024-07-06 11:59] VITALS: BP 126/96; PULSE 93; O2SAT 96
--- NOTE | 2024-07-06 11:59 | CM ---
Pt medically ready for d/c
Spoke with Karl from [facility] - can accept today
Team updated
Plan - [facility] today
- [phone]
- [phone]
--- NOTE | 2024-07-06 12:02 | W.DCSUMMARY ---
Discharge Summary
Discharge Data
Date of Admission: 06/30/24
Date of Discharge: 07/06/24
-
Pending Results: No
Hospital Course
74yo M with PMHx of DJD, spinal canal stenosis, DVT LE completed anticoagulation, HLD, bronchiectatic disease, current smoker 0.5ppd, HTN, insomnia fell at night without LOC, found L femoral Fx awaiting Sx on 07/02/24. Patient also with severe daily
alcohol usage. Patient was found to be in alcohol withdrawal. Patient with hallucinations. Patient MSAS patient was started on phenobarbital taper regimen. Surgery was delayed as patient with severe alcohol withdrawal with hallucinations.
Patient required to be in restraints. Patient was upgraded to ICU level of care and was started on Precedex. Patient was eval by cardiology, orthopedic and garden center manager. Patient underwent echocardiogram and preop restratification prior cardiology.
CT head was without acute finding. Patient was found to the left hip fracture. Slowly patient mentation started to improve. Patient mentation improved and was off Precedex. Patient remained on phenobarbital. Patient underwent left Isai hip
arthroplasty. Postop patient did well and was downgraded to medical floors. Patient was doing well. Patient pain medication were adjusted. Patient was continued on low-dose of phenobarbital. Patient [place] alcohol hepatitis score 7 Low DF.
Would not benefit from steroids Patient patient was evaluated by physical and Occupational Therapy.. Patient qualified for acute rehab. Patient be discharged to [facility]. In regards to blood pressure patient was started on Norvasc 5 mg and
lisinopril 20 mg. Chlorthalidone was discontinued. If needed patient Norvasc lisinopril dose can be adjusted. Lipitor was held as patient with mild transaminitis due to alcohol abuse. Aspirin was started for DVT prophylaxis per orthopedic.
Discharge Plan
-
Patient Disposition: Acute Rehab Facility
Discharge Diagnosis/Procedures: Daily alcohol usage/abuse
Acute alcohol withdrawal with hallucinations
Elevated GGT/Elevated Total Bilirubin
Toxic metabolic encephalopathy likely secondary to severe alcohol withdrawal
Mechanical fall leading to left hip fracture status post left hip hemiarthroplasty
Acute hypoxic respiratory insufficiency
Mild leukocytosis
Nicotine dependency
Mild hyponatremia
Condition: Fair
Diet: Low Cholesterol
Activity: With Walker
Additional Activity: posterior hip precautions x6 weeks
Driving Restrictions: Not until seen by your Dr
Bathing Restrictions: OK to Shower
Blood Work: CMP in 1-2 week via primary doctor
Referrals:
John Carlson MD [Active] - (2 weeks for wound check from [facility]- if at rehab, wound check can be done there and then outpatient f/u 4-6 weeks from [facility])
Brittany Dey MD [Family Provider] - in less than 1 week
Additional Discharge Medication Instructions: Chlorthalidone was discontinued for now
Norvasc dose was decreased to 5 mg daily
Lisinopril dose was decreased to 20 mg daily
Restart atorvastatin pending improvement in liver function
Prescriptions:
New
aspirin 325 mg Tablet
325 mg PO DAILY 26 Days Qty: 26 0RF
oxycodone 5 mg Tablet
7.5 mg PO Q4HPRN PRN (Reason: moderate pain) 5 Days Qty: 14 0RF
oxycodone 10 mg Tablet
10 mg PO Q4HPRN PRN (Reason: severe pain) Qty: 14 0RF
famotidine [Pepcid] 40 mg tablet
40 mg PO DAILY Qty: 30 0RF
Continued
albuterol sulfate 1 PUFF HFA aerosol inhaler
2 puff inhalation R Q4HPRN PRN (Reason: sob/wheeze)
Saccharomyces boulardii 250 MG capsule
250 mg PO DAILY
multivitamin with folic acid [Tab-A-Marci] 1 TABLET tablet
1 tab PO DAILY
lidocaine 1 PATCH adhesive patch,medicated
1 patch topical DAILY Qty: 7 0RF
Rx Instructions:
apply to LOWER BACK
suvorexant 10 mg Tablet
10 mg PO HS PRN (Reason: insomnia)
nicotine 21 MG patch 24 hour
21 mg transdermal DAILY
Changed
amlodipine 10 mg Tablet
5 mg PO DAILY Qty: 0 0RF
lisinopril 40 mg Tablet
20 mg PO DAILY Qty: 0 0RF
Held
atorvastatin 40 MG tablet
40 mg PO HS
Hold Instructions: Resume on 07/23/24. Hold till improvement in liver enzymes on blood work.
Discontinued
chlorthalidone 25 mg Tablet
25 mg PO DAILY
Rx Instructions:
Take with food
zolpidem 10 mg Tablet
10 mg PO HS PRN (Reason: insomnia)
Rx Instructions:
Half or one pill as needed
Discharge Orders:
Discharge Patient (As Directed); Ordered 07/06/24
Ordered By: Chapin Dietz
Discharge Date and Time
Discharge Date/Time: 07/06/24 13:56
Print Language: FAROESE
[2024-07-06 12:16] VITALS: BP 126/96; PULSE 93; O2SAT 96
== END 2024-07-06 13:56 | DRG 521 ==
LOC: 2 SOUTH 10:18
PROVIDERS: Student in an Organized Health Care Education/Training Program; ADMITTING PHYSICIAN Internal Medicine; ATTENDING PHYSICIAN Hospitalist; CONSULT PHYSICIAN Internal Medicine; CONSULT PHYSICIAN Internal Medicine Critical Care Medicine; CONSULT PHYSICIAN Specialist; EMERGENCY PHYSICIAN Emergency Medicine; FAMILY PHYSICIAN Family Medicine
PROC: 0SRS0J9 Replacement of Left Hip Joint, Femoral Surface with Synthetic Substitute, Cemented, Open Approach (ICD-10-PCS; 2024-07-04)
DX: S72.002A Fracture of unspecified part of neck of left femur, initial encounter for closed fracture (principal); G92.8 Other toxic encephalopathy; E87.1 Hypo-osmolality and hyponatremia; F10.232 Alcohol dependence with withdrawal with perceptual disturbance; F17.210 Nicotine dependence, cigarettes, uncomplicated; E66.9 Obesity, unspecified; Z68.31 Body mass index [BMI] 31.0-31.9, adult; E78.2 Mixed hyperlipidemia; I11.9 Hypertensive heart disease without heart failure; M48.00 Spinal stenosis, site unspecified; W18.09XA Striking against other object with subsequent fall, initial encounter; D69.6 Thrombocytopenia, unspecified; J44.9 Chronic obstructive pulmonary disease, unspecified; Z78.1 Physical restraint status; K70.10 Alcoholic hepatitis without ascites; R09.02 Hypoxemia; R06.89 Other abnormalities of breathing; D72.829 Elevated white blood cell count, unspecified; Z11.52 Encounter for screening for COVID-19; E87.8 Other disorders of electrolyte and fluid balance, not elsewhere classified; G47.00 Insomnia, unspecified; Y90.3 Blood alcohol level of 60-79 mg/100 ml; Z79.01 Long term (current) use of anticoagulants; Z79.899 Other long term (current) drug therapy
CPT/HCPCS: 70450; 71045; 71275; 73502; 76700; 80048; 80053; 80061; 80076; 80306; 80307; 82077; 82248; 82550; 82977; 83010; 83615; 83735; 83880; 84443; 85025; 85045; 85379; 85610; 85730; 86704; 86706; 86709; 86803; 86850; 86880; 86900; 86901; 87340; 87502; 87811; 93005; 93306; 93970; 94640; 96374; 97116; 97163; 97167; 97530; 97535; 99284; C1713; C1776; Q9967

== ENCOUNTER 2024-07-23 09:28 | Outpatient (RCR) | payer MEDICARE, OTHER, SELFPAY | END 2024-07-23 23:59 | disposition home or self-care (01) | LOC: ROT 09:28 | PROVIDERS: ATTENDING PHYSICIAN Physical Medicine & Rehabilitation; FAMILY PHYSICIAN Registered Nurse | DX: Z47.1 Aftercare following joint replacement surgery (principal); S72.012D Unspecified intracapsular fracture of left femur, subsequent encounter for closed fracture with routine healing; Z73.6 Limitation of activities due to disability; R26.89 Other abnormalities of gait and mobility; M25.552 Pain in left hip; R26.2 Difficulty in walking, not elsewhere classified; W19.XXXD Unspecified fall, subsequent encounter; Z96.642 Presence of left artificial hip joint | CPT/HCPCS: 97167; 97535 ==

== ENCOUNTER → 2024-08-01 08:30 | Outpatient (REF) | payer MEDICARE, OTHER, SELFPAY ==
[2024-08-01 11:04] LABS: ALT (SGPT) 15 U/L (0-50); AST (SGOT) 20 U/L (17-59); Albumin 3.9 g/dl (3.5-5.0); Alkaline Phosphatase 76 U/L (38-126); Blood Urea Nitrogen 19 mg/dl (9-20); Calcium 10.2 mg/dl (8.4-10.2); Carbon Dioxide 28 mmol/L (22-30); Chloride 104 mmol/L (98-107); GGTP 39 U/L (15-73); Glucose 100 mg/dl (70-99); Sodium 141 mmol/L (135-145); Total Bilirubin 0.7 mg/dl (0.2-1.3); Total Protein 6.6 g/dl (6.3-8.2); eGFR > 60.00
== END ==
LOC: HWLAB 08:30
PROVIDERS: ATTENDING PHYSICIAN Registered Nurse
DX: F10.10 Alcohol abuse, uncomplicated (principal); R74.01 Elevation of levels of liver transaminase levels
CPT/HCPCS: 36415; 80053; 82977

== ENCOUNTER 2024-08-22 10:07 | Outpatient (RCR) | payer MEDICARE, OTHER, SELFPAY | END 2024-08-22 23:59 | disposition home or self-care (01) | LOC: RPT 10:07 | PROVIDERS: ATTENDING PHYSICIAN Physical Medicine & Rehabilitation; FAMILY PHYSICIAN Registered Nurse | DX: Z47.1 Aftercare following joint replacement surgery (principal); R26.89 Other abnormalities of gait and mobility; S72.012D Unspecified intracapsular fracture of left femur, subsequent encounter for closed fracture with routine healing; Z73.6 Limitation of activities due to disability; W19.XXXD Unspecified fall, subsequent encounter; M62.81 Muscle weakness (generalized); Z96.642 Presence of left artificial hip joint | CPT/HCPCS: 97110; 97112; 97140; 97161; 97530; 97535 ==

== ENCOUNTER → 2024-08-30 07:00 | Outpatient (REF) | payer MEDICARE, OTHER, SELFPAY ==
[2024-08-30 09:40] LABS: % Basophils 0.4 % (0-2); % Eosinophils 1.5 % (0-6); % Immature Granulocytes 0.3 % (0-0.5); % Lymphocytes 20.2 % (20.5-51.1); % Monocytes 8.3 % (1.7-9.3); % Neutrophils 69.3 % (42.2-75.2); Absolute Eosinophils 0.1 10^3/uL (0-0.7); Absolute Lymphocytes 1.9 10^3/uL (1.2-3.4); Absolute Monocytes 0.8 10^3/uL (0.1-0.6); Absolute Neutrophils 6.4 10^3/uL (1.4-6.5); Hematocrit 45.3 % (39.0-52.0); Hemoglobin 15.2 g/dL (13.0-18.0); Mean Corp Hgb Conc. 33.6 g/dL (33.0-37.0); Mean Corpuscular Hgb 32.1 pg (27.0-31.0); Mean Corpuscular Volume 95.6 fL (80.0-94.0); Mean Platelet Volume 9.1 fL (7.4-10.4); Nucleated Red Blood Cells % 0 % (-); Platelet Count 233 10^3/uL (130-400); Red Blood Cell Count 4.74 10^6/uL (4.70-6.10); Red Cell Dist. Width 13.1 % (11.5-14.5); White Blood Cell Count 9.2 10^3/uL (4.8-10.8)
[2024-08-30 10:19] LABS: ALT (SGPT) 16 U/L (0-50); AST (SGOT) 21 U/L (17-59); Albumin 4.3 g/dl (3.5-5.0); Alkaline Phosphatase 83 U/L (38-126); Blood Urea Nitrogen 16 mg/dl (9-20); Calcium 9.9 mg/dl (8.4-10.2); Carbon Dioxide 26 mmol/L (22-30); Chloride 105 mmol/L (98-107); Glucose 100 mg/dl (70-99); HDL Cholesterol 46 mg/dl; LDL Cholesterol, Calculated 89 mg/dl; Potassium 4.1 mmol/L (3.5-5.1); Sodium 142 mmol/L (135-145); Total Bilirubin 0.8 mg/dl (0.2-1.3); Total Cholesterol 157 mg/dl (50-199); Triglyceride 114 mg/dl (10-149); Very Low Density Lipoprotein 22 mg/dl (0-30); eGFR > 60.00
[2024-08-30 10:36] LABS: TSH Reflex To Free T4 2.19 uIU/ml (0.47-4.68)
[2024-08-30 10:52] LABS: Glycohemoglobin (HgbA1c) 5.1 % (4.0-5.6)
== END ==
LOC: HWLAB 07:00
PROVIDERS: ATTENDING PHYSICIAN Registered Nurse
DX: E78.2 Mixed hyperlipidemia (principal); R73.01 Impaired fasting glucose; I10 Essential (primary) hypertension
CPT/HCPCS: 36415; 80053; 80061; 83036; 84443; 85025

== ENCOUNTER → 2024-09-03 12:17 | Outpatient (REF) | payer MEDICARE, OTHER, SELFPAY | LOC: DHSLP 12:17 | PROVIDERS: ATTENDING PHYSICIAN Internal Medicine Critical Care Medicine; FAMILY PHYSICIAN Registered Nurse | DX: G47.33 Obstructive sleep apnea (adult) (pediatric) (principal); R09.02 Hypoxemia | CPT/HCPCS: 95800 ==

== ENCOUNTER 2024-09-21 11:17 | Outpatient (RCR) | payer MEDICARE, OTHER, SELFPAY | END 2024-09-21 23:59 | disposition home or self-care (01) | LOC: RPT 11:17 | PROVIDERS: ATTENDING PHYSICIAN Physical Medicine & Rehabilitation; FAMILY PHYSICIAN Registered Nurse | DX: Z47.1 Aftercare following joint replacement surgery (principal); Z96.642 Presence of left artificial hip joint; S72.012D Unspecified intracapsular fracture of left femur, subsequent encounter for closed fracture with routine healing; R26.89 Other abnormalities of gait and mobility; Z73.6 Limitation of activities due to disability; W19.XXXD Unspecified fall, subsequent encounter; M62.81 Muscle weakness (generalized) | CPT/HCPCS: 97110; 97112; 97140; 97530 ==

== ENCOUNTER 2024-10-01 11:55 | Outpatient (RCR) | payer MEDICARE, OTHER, SELFPAY | END 2024-10-01 13:01 | disposition home or self-care (01) | LOC: RPT 11:55 | PROVIDERS: ATTENDING PHYSICIAN Physical Medicine & Rehabilitation; FAMILY PHYSICIAN Registered Nurse | DX: Z47.1 Aftercare following joint replacement surgery (principal); S72.012D Unspecified intracapsular fracture of left femur, subsequent encounter for closed fracture with routine healing; R26.89 Other abnormalities of gait and mobility; Z73.6 Limitation of activities due to disability; M62.81 Muscle weakness (generalized); W19.XXXD Unspecified fall, subsequent encounter; Z96.642 Presence of left artificial hip joint | CPT/HCPCS: 97110; 97112; 97140; 97530 ==

== ENCOUNTER → 2025-03-07 08:27 | Outpatient (REF) | payer MEDICARE, OTHER, SELFPAY ==
[2025-03-07 10:32] LABS: ALT (SGPT) 17 U/L (0-50); AST (SGOT) 20 U/L (17-59); Albumin 4.3 g/dl (3.5-5.0); Alkaline Phosphatase 73 U/L (38-126); Blood Urea Nitrogen 29 mg/dl (9-20); Calcium 10.2 mg/dl (8.4-10.2); Carbon Dioxide 28 mmol/L (22-30); Chloride 103 mmol/L (98-107); Glucose 84 mg/dl (70-99); HDL Cholesterol 45 mg/dl; LDL Cholesterol, Calculated 82 mg/dl; Potassium 4.1 mmol/L (3.5-5.1); Sodium 140 mmol/L (135-145); Total Protein 7.2 g/dl (6.3-8.2); Very Low Density Lipoprotein 9 mg/dl (0-30); eGFR > 60.00
[2025-03-07 11:45] LABS: Glycohemoglobin (HgbA1c) 5.3 % (4.0-5.9)
== END ==
LOC: HWLAB 08:27
PROVIDERS: ATTENDING PHYSICIAN Registered Nurse
DX: Z00.00 Encounter for general adult medical examination without abnormal findings (principal); I10 Essential (primary) hypertension; E66.9 Obesity, unspecified; E78.2 Mixed hyperlipidemia; K70.0 Alcoholic fatty liver; R73.01 Impaired fasting glucose
CPT/HCPCS: 36415; 80053; 80061; 83036; 84443

== ENCOUNTER → 2025-03-13 11:27 | Outpatient (REF) | payer MEDICARE, OTHER, SELFPAY | LOC: HWRAD 11:27 | PROVIDERS: ATTENDING PHYSICIAN Internal Medicine Critical Care Medicine; FAMILY PHYSICIAN Registered Nurse | DX: Z87.891 Personal history of nicotine dependence (principal) | CPT/HCPCS: 71271 ==